=== PATIENT | female | born 1980 | race Caucasian/White ===

== ENCOUNTER 2020-04-19 14:44 | Outpatient (CLI) | payer OTHER, SELFPAY ==
--- NOTE | ~2020-04-19 | MM_ITS ---
EXAMINATION: MM screening quita BI w donaldo HISTORY: Screening TECHNIQUE: Craniocaudal and mediolateral oblique 3-D tomosynthesis images were obtained and synthetic 2-D images were generated. CAD analysis was submitted and interpreted. COMPARISON: 04/27/2017 BREAST PARENCHYMAL COMPOSITION: The breasts are heterogeneously dense, which may obscure small masses . FINDINGS: There is no evidence of suspicious mass, calcification, or architectural distortion to sugg est malignancy in either breast. There has been no suspicious interval change. IMPRESSION: 1. No mammographic evidence of malignancy. 2. Recommend routine screening mammography in one year. BI-RADS Category 1: Negative Reviewed, dictated and finalized at location A. [employer]
== END 2020-04-19 14:45 | disposition home or self-care (01) ==
LOC: ANHIMG 14:48
PROVIDERS: PCP Family Medicine; Visit Provider Family Medicine
DX: Z12.31 Encounter for screening mammogram for malignant neoplasm of breast (principal)
CPT/HCPCS: 77063; 77067

== ENCOUNTER 2021-05-18 18:03 | Emergency (ER) | payer OTHER, SELFPAY ==
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
[2021-05-18 18:10] VITALS: BP 119/74; PULSE 63; RESP 16; TEMP 36.4; O2SAT 100
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
[2021-05-18 18:14] VITALS: BP 119/74; PULSE 63; RESP 16; TEMP 36.4; O2SAT 100
== END 2021-05-18 19:10 | disposition home or self-care (01) ==
PROVIDERS: Emergency Provider Nurse Practitioner; PCP Family Medicine
DX: R07.89 Other chest pain (principal); S29.012A Strain of muscle and tendon of back wall of thorax, initial encounter; V49.60XA Unspecified car occupant injured in collision with unspecified motor vehicles in traffic accident, initial encounter; M79.18 Myalgia, other site; I10 Essential (primary) hypertension; E03.9 Hypothyroidism, unspecified; Z98.84 Bariatric surgery status
CPT/HCPCS: 71111; 72072; 99214; G0463

== ENCOUNTER 2021-05-25 15:31 | Emergency (ER) | payer OTHER, SELFPAY ==
[2021-05-25 15:45] VITALS: BP 121/76; PULSE 78; RESP 16; TEMP 36.8; O2SAT 100
--- NOTE | 2021-05-25 16:28 | ED.GENADULT ---
HPI - General Adult General Chief complaint: Upper Respiratory Infection Stated complaint: covid +,swollen throat Source: patient Mode of arrival: ambulatory Limitations: no limitations History of Present Illness HPI narrative: Patient presents for evaluation of sore throat. She states four days ago she experienced a scratchy throat . She took a home COVID test at that time which was positive. She took a repeat test the following day and another two days after initial. All tests were positive. She had a mild cough but that has improved. She has experienced fatigue and low back pain. She came in today to be checked for strep throat. She has tried several therapies including pectin drops and cepacol without considerable improvement in her symptoms. No one else at home has similar symptoms. She has had COVID another time in the past. No additional complaints or concerns. Related Data Home Medications Medication Instructions Recorded Confirmed levothyroxine 50 mcg PO DAILY 05/18/21 05/25/21 Allergies Allergy/AdvReac Type Severity Reaction Status Date / Time Sulfa (Sulfonamide Allergy Unknown Swelling Verified 05/25/21 15:47 Antibiotics) Review of Systems Review of Systems: CONSTITUTIONAL: Reports fatigue. Denies fever, chills, or sweats. EYES: Denies visual changes, redness, or discharge. ENT: Reports sore throat. Denies rhinorrhea, congestion, or otalgia. CARDIOVASCULAR: Denies chest pain, palpitations, or edema. RESPIRATORY: Reports cough. Denies dyspnea. GASTROINTESTINAL: Denies abdominal pain, nausea, vomiting, or diarrhea. GENITOURINARY: Denies dysuria or hematuria. SKIN: Denies rash or itching. MUSCULOSKELETAL: Reports generalized body aches, improving. NEUROLOGIC:Denies headache, numbness, dizziness, or weakness. PSYCHIATRIC: Denies anxiety or depression. [facility] Past Medical History Medical History (Updated 05/25/21 @ 16:51 by Christiano Lee, MATA, PAWEL) HTN (hypertension) Hypothyroid Surgical History Surgical History H/O gastric sleeve History of delivery History of cholecystectomy History of tonsillectomy and adenoidectomy Hx of cholecystectomy Family History Family History Mother Family history non-contributory Social History Social History Alcohol intake: current Living arrangements: with family Gender identity (if verbalized by the patient): Female Sexual Orientation (if Verbalized by the Patient): Straight or Heterosexual Spiritual care concerns: No Exam Narrative: GENERAL: Well-appearing, well-nourished, and in no acute distress. HEAD: Normocephalic, atraumatic. EYES: PERRLA and EOMI. ENT: Nares clear, no rhinorrhea or epistaxis. Mucous membranes moist. Tonsils are absent. Uvula midline. No posterior pharyngeal swelling. No trismus. Bilateral TMs pearly west nonbulging NECK: Supple. No adenopathy or masses. No carotid bruits or JVD CHEST: No stridor. Clear to auscultation. No respiratory distress. No wheezes rales or rhonchi HEART: Regular rate and rhythm. No murmur heard. Normal peripheral pulses. ABDOMEN: Soft, nontender, nondistended, normal active bowel sounds. EXTREMITIES: Normal range of motion. No edema. SKIN: Warm, dry, no rash. NEURO: No focal deficits. Alert and oriented x3. PSYCH: Normal mood and affect. Course Course Emergency Course: This is a 40-year-old female who presented with complaints of sore throat with recent diagnosis of Covid. Strep was negative. Given Decadron orally while here. She had considerable improvement thereafter. Liquid ibuprofen may help. She has no trismus or stridor on exam. She should follow up outpatient for further evaluation and treatment and go to ER for any difficulty breathing or swallowing. Patient agreed with plan of care.
== END 2021-05-25 17:08 | disposition home or self-care (01) ==
PROVIDERS: Emergency Provider Nurse Practitioner; PCP Family Medicine
DX: U07.1 COVID-19 (principal); I10 Essential (primary) hypertension; E03.9 Hypothyroidism, unspecified; Z98.84 Bariatric surgery status
CPT/HCPCS: 87081; 87880; 99213; G0463; J1100

== ENCOUNTER 2021-08-08 13:08 | Outpatient (CLI) | payer OTHER, SELFPAY ==
--- NOTE | ~2021-08-08 | US_ITS ---
EXAMINATION: US arterial duplex LE DATE: 08/08/2021 14:47 INDICATION: Bilateral lower limb pain and numbness TECHNIQUE: Multiple grayscale and Doppler ultrasound images of the arteries of the bilateral lower li mbs were obtained. COMPARISON: None FINDINGS: Arteries of the right lower limb: Normal triphasic arterial waveforms with brisk systolic upstrokes on spectral Doppler at the right co mmon femoral, profunda femoral and superficial femoral, popliteal, posterior tibial and peroneal brent dev. Biphasic arterial waveforms with brisk systolic upstrokes at the right anterior tibial artery. No evident hemodynamically significant stenosis on grayscale imaging or abnormal increase in peak sys tolic velocities to suggest hemodynamically significant stenosis in the arteries of the right lower l imb. Arteries of the left lower limb: Normal triphasic arterial waveforms with brisk systolic upstrokes on spectral Doppler at the right co mmon femoral, profunda femoral and superficial femoral, popliteal, posterior tibial, peroneal and ant erior tibial arteries. No evident hemodynamically significant stenosis on grayscale imaging or abnorm al increase in peak systolic velocities to suggest hemodynamically significant stenosis in the arteri es of the left lower limb. IMPRESSION: 1. No evident hemodynamically significant stenosis in either lower limb with biphasic waveforms at th e right anterior tibial artery and triphasic waveforms in the remaining arteries of both lower limbs, all with brisk systolic upstrokes. Reviewed, dictated and finalized at location A. IMPRESSION: 1. No evident hemodynamically significant stenosis in either lower limb with bi phasic waveforms at the right anterior tibial artery and triphasic waveforms in the remaining arteries of both lower limbs, all with brisk systolic upstrokes.
--- NOTE | ~2021-08-08 | US_ITS ---
EXAMINATION: US venous doppler [facility] DATE: 08/08/2021 14:43 INDICATION: Bilateral lower limb pain TECHNIQUE: Grayscale ultrasound images without and with compression and Doppler ultrasound images of the bilateral lower extremity veins were obtained. COMPARISON: None. FINDINGS: The visualized portions of right common femoral vein, profunda (deep) femoral vein, femoral vein, pop liteal vein, posterior tibial veins, peroneal veins, gastrocnemius vein and greater saphenous vein ou tflow are patent. The visualized portions of left common femoral vein, profunda femoral vein, femoral vein, popliteal v ein, posterior tibial veins, peroneal veins, gastrocnemius vein and greater saphenous vein outflow ar e patent. IMPRESSION: 1. No deep venous thrombosis in either lower limb. Reviewed, dictated and finalized at location B.
== END 2021-08-08 13:09 | disposition home or self-care (01) ==
PROVIDERS: PCP Physician Assistant; Visit Provider Physician Assistant
DX: M79.605 Pain in left leg (principal)
CPT/HCPCS: 93925; 93970

== ENCOUNTER 2022-08-08 11:38 | Outpatient (CLI) | payer OTHER, SELFPAY ==
--- NOTE | ~2022-08-08 | MM_ITS ---
EXAMINATION: MM screening quita BI w donaldo HISTORY: Screening mammogram TECHNIQUE: Craniocaudal and mediolateral oblique 3-D tomosynthesis images were obtained and synthetic 2-D images were generated. CAD analysis was submitted and interpreted. COMPARISON: 04/19/2020 and 04/27/2017 BREAST PARENCHYMAL COMPOSITION:There are scattered areas of fibroglandular density. FINDINGS: No suspicious mass, calcification, or architectural distortion are identified in either jered ast to suggest malignancy. There has been no suspicious interval change. IMPRESSION: No mammographic evidence of malignancy. Recommend routine screening mammography in one year. BI-RADS Category 1: Negative Reviewed, dictated and finalized at location .
== END 2022-08-08 11:39 | disposition home or self-care (01) ==
LOC: ANHIMG 11:39
PROVIDERS: PCP Physician Assistant; Visit Provider Physician Assistant
DX: Z12.31 Encounter for screening mammogram for malignant neoplasm of breast (principal)
CPT/HCPCS: 77063; 77067

== ENCOUNTER 2022-10-17 05:21 | Emergency (ER) | payer OTHER, SELFPAY ==
[2022-10-17] VITALS (23 sets, daily range): BP systolic 102–113; BP diastolic 49–73; PULSE 52–66; RESP 8–18; TEMP 36.6; O2SAT 95–100
--- NOTE | ~2022-10-17 | CT_ITS ---
EXAMINATION: CT abdomen pelvis w con INDICATION: Left upper quadrant and epigastric abdominal pain TECHNIQUE: Computed tomographic images of the abdomen and pelvis were obtained after the administrati on of 100 cc of Omnipaque 350 intravenous contrast. The dose-length product (DLP) was 324.22 mGy-cm. Automated exposure control and iterative reconstruction technique were employed. COMPARISON: 06/23/2017 FINDINGS: The lung bases are clear. The heart size is normal. There is a small sliding hiatal hernia. There are surgical changes in the stomach, likely reflecting gastric sleeve surgery. The gallbladder is surgically absent. The liver, spleen, pancreas, and adrenal glands are normal. No pathologically enlarged abdominal or pelvic lymph nodes are identified. No free intraperitoneal gas or evidence of b owel obstruction. The appendix is normal. IMPRESSION: 1. Small sliding hiatal hernia. Reviewed, dictated and finalized at location A.
--- NOTE | ~2022-10-17 | XR_ITS ---
EXAMINATION: XR chest 2V DATE: 10/17/2022 06:03 INDICATION: Chest pain TECHNIQUE: PA and lateral views of the chest are obtained. COMPARISON: 04/06/2017 FINDINGS: The lungs are free of acute opacities. No pleural effusion or pneumothorax. The cardiomedia stinal silhouette is normal. There is mild thoracic spondylosis. Surgical clips in the right upper qu adrant are likely from prior cholecystectomy. IMPRESSION: 1. No acute cardiopulmonary abnormality. Reviewed, dictated and finalized at location A.
--- NOTE | 2022-10-17 05:35 | ECG_ITS ---
Measurements Intervals [place] Rate: 64 P: 29 [place]: 158 QRS: 82 QRSD: 88 T: 55 QT: 405 QTc: 420 Interpretive Statements SINUS RHYTHM INCOMPLETE RIGHT BUNDLE BRANCH BLOCK BORDERLINE ECG NO PREVIOUS ECG AVAILABLE FOR COMPARISON Electronically Signed On 10-17-2022 8:00:08 CDT by Zelalem Lozano D.O.
[2022-10-17 05:46] LABS: Basophils Percent Auto 0.4 % (0.2-1.2); Eosinophils Absolute Auto 0.1 K/mm3 (0-0.3); Eosinophils Percent Auto 1.2 % (0-4.4); Hematocrit 40.6 % (37.0-47.0); Hemoglobin 13.6 g/dL (12.0-15.0); Immature Granulocyte Absolute 0.03 K/mm3 (0.00-0.031); Immature Granulocyte Percent A 0.4 % (0-0.5); Lymphocytes Percent Auto 18.1 % (18.3-44.2); Mean Corpuscular HGB Conc 33.5 g/dl (32-36); Mean Corpuscular Hemoglobin 28.9 pg (26-34); Mean Corpuscular Volume 86.4 fl (80-100); Mean Platelet Volume 9.3 fl (7.4-10.4); Monocytes Absolute Auto 0.8 K/mm3 (0.1-0.6); Monocytes Percent Auto 10.9 % (2.6-8.5); Neutrophils Absolute Auto 5.3 K/mm3 (1.3-6.7); Platelet Count Result 186 k/mm3 (150-375); Red Cell Distribution Width 11.7 % (11.5-14.5); White Blood Count 7.7 K/mm3 (4.5-10.0)
[2022-10-17 05:59] LABS: Alanine Aminotransferase 25 U/L (6-35); Alkaline Phosphatase 41 U/L (38-126); Anion Gap 6 mmol/L (8-16); Aspartate Amino Transferase 37 U/L (14-36); Bilirubin,Total 0.5 mg/dL (0.2-1.3); Blood Urea Nitrogen 11 mg/dL (7-17); Calcium 8.9 mg/dL (8.4-10.2); Carbon Dioxide 28 mmol/L (22-30); Chloride 103 mmol/L (98-107); Estimated CRCL calculation 72 ml/min; Estimated Glomerular Filt Rate > 60; Glucose 90 mg/dL (65-110); Lipase 68 U/L (23-300); Potassium 3.6 mmol/L (3.4-5.0); Sodium 137 mmol/L (137-145)
[2022-10-17 06:02] LABS: INR 1.1; Prothrombin Time 14.5 Seconds (11.1-14.7)
[2022-10-17 06:03] LABS: Partial Thromboplastin Time 35.5 SECONDS (22.3-36.8)
[2022-10-17 06:23] LABS: Troponin I < 0.012 ng/mL (0.000-0.034)
--- NOTE | 2022-10-17 08:40 | ED.GENADULT ---
HPI - General Adult General Chief complaint: Chest Pain Stated complaint: CHEST AND ABD PAIN Time Seen by Provider: 10/17/22 07:02 History of Present Illness HPI narrative: Patient is a 41-year-old female who presents ER with epigastric pain. Sudden onset earlier this morning. Radiates to the left side. Associate with nausea vomiting. She reports she was shaky and sweating and that her hands were tingly. She became short of breath. No aggravating or alleviating factors. Patient reports she has been having diarrhea for several days. No exertional component. No alleviating factors. Related Data Home Medications Medication Instructions Recorded Confirmed levothyroxine 50 mcg tablet 50 mcg PO DAILY 05/18/21 05/25/21 Allergies Allergy/AdvReac Type Severity Reaction Status Date / Time Sulfa (Sulfonamide Allergy Unknown Swelling Verified 05/25/21 15:47 Antibiotics) Review of Systems Review of Systems: All systems reviewed & are unremarkable except as noted in HPI and below Constitutional: Constitutional: Denies chills, Reports fatigue and Denies fever(s) ENT: Denies nasal congestion and Denies sore throat Cardiovascular: Cardiovascular: Reports chest pain, Denies rapid heart rate and Denies radiating jaw, neck or arm pain Respiratory: Respiratory: Denies cough, Reports dyspnea and Denies wheezing Gastrointestinal: Gastrointestinal: Reports abdominal pain, Reports diarrhea, Denies nausea and Denies vomiting Genitourinary: Genitourinary: Reports no additional female genitourinary complaints Musculoskeletal: Musculoskeletal: Reports no additional musculoskeletal complaints [facility] Past Medical History Medical History (Updated 10/17/22 @ 10:37 by Rajiv Liriano MD) HTN (hypertension) Hypothyroid Surgical History Surgical History H/O gastric sleeve History of delivery History of cholecystectomy History of tonsillectomy and adenoidectomy Hx of cholecystectomy Family History Family History Mother Family history non-contributory Social History Social History Alcohol intake: current Living arrangements: with family Gender identity (if verbalized by the patient): Female Sexual Orientation (if Verbalized by the Patient): Straight or Heterosexual Spiritual care concerns: No Exam Narrative: GENERAL: Well-appearing, well-nourished, and in no acute distress. HEAD: Normocephalic, atraumatic. ENT: Mucous membranes moist. CHEST: Clear to auscultation. No respiratory distress. HEART: Regular rate and rhythm. Normal peripheral pulses. ABDOMEN: Soft, nontender, nondistended. EXTREMITIES: Normal range of motion. No edema. SKIN: Warm, dry, no rash. NEURO: Alert and oriented x3. PSYCH: Normal mood and affect. Course Vital Signs Vital signs: Vital Signs Temperature 98 F 10/17/22 05:21 Pulse Rate 64 10/17/22 05:21 Respiratory Rate 17 10/17/22 05:21 Blood Pressure 113/60 10/17/22 05:21 Pulse Oximetry 100 10/17/22 05:21 Oxygen Delivery Room Air 10/17/22 05:21 Temperature 98 F 10/17/22 05:21 Pulse Rate 63 10/17/22 10:16 Respiratory Rate 12 10/17/22 10:16 Blood Pressure 107/65 10/17/22 10:16 Pulse Oximetry 99 10/17/22 10:16 Oxygen Delivery Room Air 10/17/22 05:21 Medical Decision Making MDM Narrative Medical decision making narrative: -Presentation: 41-year-old female presenting ER with epigastric pain -DDX includes but is not limited to: Pancreatitis, gastritis, gastroenteritis, ACS -Co-morbidities complicating care: None -Social determinants of health: Lives at home -External Chart Review: None -Hx from independent Sources: Patient -Independent interpretation of studies: Normal CBC/CMP. Troponin negative x2. -Discussion of [place]
[2022-10-17 09:51] LABS: Troponin I < 0.012 ng/mL (0.000-0.034)
== END 2022-10-17 10:53 | disposition home or self-care (01) ==
PROVIDERS: Emergency Medicine; Emergency Provider Emergency Medicine; PCP Physician Assistant
DX: K44.9 Diaphragmatic hernia without obstruction or gangrene (principal); I10 Essential (primary) hypertension; E03.9 Hypothyroidism, unspecified; Z90.49 Acquired absence of other specified parts of digestive tract; Z98.84 Bariatric surgery status; I45.10 Unspecified right bundle-branch block
CPT/HCPCS: 36415; 71046; 74177; 80053; 83690; 84484; 85025; 85610; 85730; 93005; 99284; Q9967

== ENCOUNTER 2023-09-20 15:11 | Outpatient (CLI) | payer OTHER, SELFPAY ==
--- NOTE | ~2023-09-20 | US_ITS ---
Pelvic ultrasound. Clinical History: Vaginal lesion Technique: Realtime transabdominal and transvaginal scanning of the pelvis was performed. Color flow Doppler and Doppler spectral analysis were performed. Findings: Status post hysterectomy. There is a 7 x 5 x 4 mm cystic lesion at the vaginal cuff.. The right ovary measures 1.3 x 1.0 x 1.7 cm cm. No significant right ovarian or adnexal mass is seen . The left ovary is not visualized. No significant left ovarian or adnexal mass is seen. There is no evidence of free fluid in the cul de sac. Impression: 7 x 5 x 4 mm cystic lesion at the vaginal cuff. Status post hysterectomy. Reviewed, dictated and finalized at location . Impression: 7 x 5 x 4 mm cystic lesion at the vaginal cuff. Status post hysterectomy.
== END 2023-09-20 15:12 | disposition home or self-care (01) ==
LOC: ANHIMG 15:12
PROVIDERS: PCP Physician Assistant
DX: N94.89 Other specified conditions associated with female genital organs and menstrual cycle (principal)
CPT/HCPCS: 76830; 76856

== ENCOUNTER 2023-11-03 15:33 | Outpatient (CLI) | payer OTHER, SELFPAY ==
--- NOTE | ~2023-11-03 | MM_ITS ---
EXAMINATION: MM screening quita BI w donaldo HISTORY: Screening mammogram TECHNIQUE: Craniocaudal and mediolateral oblique 3-D tomosynthesis images were obtained and synthetic 2-D images were generated. CAD analysis was submitted and interpreted. COMPARISON: 08/08/2022, 04/19/2020, 04/27/2017 BREAST PARENCHYMAL COMPOSITION:Dense: The breasts are heterogeneously dense, which may obscure small masses. FINDINGS: No suspicious mass, calcification, or architectural distortion are identified in either jered ast to suggest malignancy. There has been no suspicious interval change. IMPRESSION: No mammographic evidence of malignancy. Recommend routine screening mammography in one year. BI-RADS Category 1: Negative Reviewed, dictated and finalized at location .
== END 2023-11-03 15:34 | disposition home or self-care (01) ==
LOC: ANHIMG 15:40
PROVIDERS: PCP Nurse Practitioner Family; Visit Provider Nurse Practitioner Family
DX: Z12.31 Encounter for screening mammogram for malignant neoplasm of breast (principal)
CPT/HCPCS: 77063; 77067

== ENCOUNTER 2023-12-03 00:34 | Day surgery (SDC) | payer OTHER, SELFPAY ==
--- NOTE | 2023-11-25 16:07 | PC.NURSE ---
Report to the Outpatient Waiting Room, entrance under the green pavilion located off [facility], at time ___1000____ on date _[id number] . Planned Procedure Time: ___1200 .? Time changes happen often and if your time is changed the preop area will call you the afternoon before. - You and your visitor will be asked to self-screen and do not enter if you have any COVID symptoms. Please call surgeon if you need to reschedule. - A mask is optional within the hospital at this time. Patients may have clear liquids (water, carbonated beverages, clear teas, apple juice) until 3 hours prior to surgery with a maximum of 20 ounces. STOP AT 9AM - No food from midnight until time of surgery and no smoking - Take only the following medications with a SIP of water on the morning of surgery: ____SYNTHROID DO NOT STOP ANY OF YOUR OTHER PRESCRIPTION MEDICATIONS PRIOR TO SURGERY EXCEPT THE FOLLOWING Medications to discontinue per physician STOP YOUR MVT X3 DAYS BEFORE SURGERY Date to take last ptyl___[id number] DO NOT TAKE YOUR LISINOPRIL THE MORNING OF SURGERY. DO NOT TAKE YOUR PRN HCTZ THE MORNING OF SURGERY. Please no make-up, nail danish, hairspray, perfume, deodorant, or body powder the day of surgery.? No jewelry (including any body piercings) or valuables the day of surgery, leave them at home.? Please take a shower or bath the night before, or the morning of, surgery with an antibacterial soap.? Wear comfortable, loose fitting clothing.? - Jewelry must be removed prior to entering the operating room.? Rings and piercings that are not removed may be cut off. - The hospital will not accept responsibility for valuables.? - Please leave all valuables, including medications, at home the day of surgery. If you are going home after surgery, a licensed local combination truck driver must drive you home.? - NO public transportation without another adult if you receive anesthesia. - We recommend that an adult stay with you for 24 hours following discharge. - We also recommend that you do not drive, make important decision, drink alcoholic beverages, or take any drugs that were not prescribed by your health care provider for at least 24 hours after your discharge time. Follow any additional instructions given to you from your surgeon. Telephone instructions given to ____BRIDGET (PATIENT) and asked if any additional questions and then verbalized understanding. Patient advised to call surgeon office or pre surgery nurse liaison [phone] if any additional questions.
[2023-11-25 16:16] VITALS: BMI 20.8
[2023-12-03] VITALS (8 sets, daily range): BP systolic 102–122; BP diastolic 62–83; PULSE 48–66; RESP 16; TEMP 36.5; O2SAT 100; BMI 19.9
--- NOTE | 2023-12-03 07:45 | PM.IMHP ---
H&P: HPI History of Present Illness Date/Time: 12/03/23 07:45 Chief Complaint: vaginal cyst Narrative: 42-year-old female who presents for excision of vaginal cyst. She reports vaginal discomfort due to cyst. The patient had pelvic imaging which showed a vaginal cuff cyst. Patient requests excision in the operating room. Review of Systems Cardiovascular: Cardiovascular: Denies chest pain, Denies leg edema, Denies palpitations, Denies dyspnea and Denies dyspnea on exertion Respiratory: Respiratory: Denies cough, Denies dyspnea and Denies dyspnea on exertion Gastrointestinal: Gastrointestinal: Denies abdominal pain, Denies constipation, Denies diarrhea, Denies nausea and Denies vomiting Genitourinary: Genitourinary: Denies hematuria, Denies urinary frequency, Denies dysuria, Denies pelvic pain, Denies urinary incontinence and Denies vaginal discharge Neurologic: Reports system reviewed and no additional complaints, except as documented Psychiatric: Psychiatric: Reports no additional psychiatric complaints Endocrine: Endocrine: Denies palpitations PMFSH Past Medical History Medical History (Updated 11/01/23 @ 07:29 by Frank Pulido MD) Hernia HTN (hypertension) Hypothyroid Vaginal discharge Surgical History Surgical History (Updated 10/25/23 @ 10:12 by AFSHIN Bernardo) H/O gastric sleeve H/O: hysterectomy History of delivery x 4 History of cholecystectomy History of tonsillectomy and adenoidectomy Hx of cholecystectomy Family History Family History (Updated 10/25/23 @ 10:14 by AFSHIN Bernardo) Mother Family history non-contributory Cervical cancer Mother No problems noted. Father Acute myocardial infarction Grandparent Acute myocardial infarction maternal and paternal granfather Breast cancer maternal grandmother and great grandmother Social History Social History (Updated 10/25/23 @ 10:15 by AFSHIN Bernardo) Smoking status: Never smoker Second hand tobacco smoke exposure: No Alcohol intake: current Drinks per week: 0 Alcohol use details: rare/social Substance use: never Substance use type: does not use Other substance usage details: gummies occassional Do You Feel Safe in your Home?: Yes Lack of Transportation: No Lack of Food: Never True Current Housing: I Have Housing Concerned About Future Housing: No Difficulty Paying Gas/Electric Bills: No Difficulty Paying for Meds: No Currently Unemployed: No Difficulty w/ Childcare or Family Care: No Living arrangements: with family Additional living arrangements comments: single Occupation/Education: occupation 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 Gender identity (if verbalized by the patient): Female Sexual Orientation (if Verbalized by the Patient): Bisexual Spiritual care concerns: No Meds Home Medications and Allergies Home Medications Medication Instructions Recorded Confirmed Type levothyroxine 50 mcg tablet 50 mcg PO DAILY 05/18/21 11/25/23 History lisinopril 20 mg tablet 20 mg PO DAILY 10/25/23 11/25/23 History wcqjgaheokib-Xg-bbbr-minerals 18 1 tablet PO DAILY 11/25/23 11/25/23 History mg-0.4 mg tablet Allergies Allergy/AdvReac Type Severity Reaction Status Date / Time Sulfa (Sulfonamide Allergy Unknown Swelling Verified 11/25/23 16:20 Antibiotics) Latex, Natural Rubber Allergy Rash Verified 11/25/23 16:23 Exam Const: General: no acute distress Eyes: EOM: EOMs intact bilaterally Neck: Neck: supple Thyroid: thyroid normal Chest: Breast/axilla inspection: normal inspection of the breasts Breast/axilla palpation: normal palpation of the breasts, normal palpation of the axillae and no axillary lymphadenopathy Resp: Effort & Inspection: normal respiratory effort Auscultation: clear to auscultation bilaterally Cardio: Rate: regular rate Rhythm: regular rhythm GI: Inspectio
[2023-12-03] MEDS: LACTATED RINGERS 1,000 ML 30 ML IV CONT (10:30)
--- NOTE | 2023-12-03 11:23 | WPDANESEPPF ---
Anes - Initial Pre Proc Eval Procedure: Operation Date: 12/03/23 12:00 Proposed Procedures p Excision of Vaginal Cyst - Frank Pulido MD Date/Time: 12/03/23 11:23 Surgeon: Frank Pulido MD Pre Op Diagnosis: Vaginal Cyst Patient Data Age: 42 Gender: F Height: 1.65 m Weight: 54.4 kg Last Vital Signs Temp 97.7 F 12/03/23 10:30 Pulse 62 12/03/23 10:30 Resp 16 12/03/23 10:30 BP 118/74 12/03/23 10:30 Pulse Ox 100 12/03/23 10:30 O2 Del Method Room Air 12/03/23 10:30 Allergies Allergy/AdvReac Type Severity Reaction Status Date / Time Sulfa (Sulfonamide Allergy Unknown Swelling Verified 12/03/23 11:23 Antibiotics) Latex, Natural Rubber Allergy Rash Verified 12/03/23 11:23 Home Medications Medication Instructions Recorded Confirmed Type levothyroxine 50 mcg tablet 50 mcg PO DAILY 05/18/21 11/25/23 History lisinopril 20 mg tablet 20 mg PO DAILY 10/25/23 11/25/23 History cjnltbqignvm-Tw-ylmk-minerals 18 1 tablet PO DAILY 11/25/23 11/25/23 History mg-0.4 mg tablet Patient hx anesthesia problems: none Family hx anesthesia problems: none Results Review: All pre-operative results and documents have been reviewed as part of the pre-operative evaluation. [facility] Past Medical History Medical History (Updated 11/01/23 @ 07:29 by Frank Pulido MD) Hernia HTN (hypertension) Hypothyroid Vaginal discharge Surgical History Surgical History (Updated 10/25/23 @ 10:12 by AFSHIN Bernardo) H/O gastric sleeve H/O: hysterectomy History of delivery x 4 History of cholecystectomy History of tonsillectomy and adenoidectomy Hx of cholecystectomy Family History Family History (Updated 10/25/23 @ 10:14 by AFSHIN Bernardo) Mother Family history non-contributory Cervical cancer Mother No problems noted. Father Acute myocardial infarction Grandparent Acute myocardial infarction maternal and paternal granfather Breast cancer maternal grandmother and great grandmother Social History Social History (Updated 10/25/23 @ 10:15 by AFSHIN Bernardo) Smoking status: Never smoker Second hand tobacco smoke exposure: No Alcohol intake: current Drinks per week: 0 Alcohol use details: rare/social Substance use: never Substance use type: does not use Other substance usage details: gummies occassional Do You Feel Safe in your Home?: Yes Lack of Transportation: No Lack of Food: Never True Current Housing: I Have Housing Concerned About Future Housing: No Difficulty Paying Gas/Electric Bills: No Difficulty Paying for Meds: No Currently Unemployed: No Difficulty w/ Childcare or Family Care: No Living arrangements: with family Additional living arrangements comments: single Occupation/Education: occupation 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 Gender identity (if verbalized by the patient): Female Sexual Orientation (if Verbalized by the Patient): Bisexual Spiritual care concerns: No Anes - Eval Final PreProcedure Day of Procedure 12/03/23 11:23 Patient weight: normal Heart: regular rate and rhythm Lungs: clear to auscultation Airway: Mallampati scale class II Neurological: alert and oriented Last oral intake: >/= 8 hours ASA classification: II Emergent: no Anesthetic plan: proceed Anesthesia type and monitoring: general GIVS and standard monitoring Results Review: All pre-operative results and documents have been reviewed as part of the pre-operative evaluation. Informed Consent: The patient's anesthetic plan and its attendant risks and benefits were discussed with the patient/family/POA. Questions were solicited and answers provided to the satisfaction of the patient/family/POA.
--- NOTE | 2023-12-03 11:33 | WPDHPUPDATE1 ---
History and Physical Update Update Date/Time: 12/03/23 11:33 History and Physical has been reviewed, including an updated exam of the patient. There are NO changes in the patient's condition. Risks, benefits, and alternatives have been discussed and questions answered. Patient agrees to proceed with procedure.
[2023-12-03] MEDS: ceFAZolin 2 GM/D5W 50 ML 2 GM/50 ML BAG IVPB (11:49)
[2023-12-03] MEDS: LIDO 1%/EPINEPHRINE 1:100,000 50 ML VIAL 10 ML INFILTRATE (12:02)
[2023-12-03] MEDS: FERRIC SUBSULFATE 8 ML SOLUTION WITH APPLICATOR TOPICAL (12:12)
--- NOTE | 2023-12-03 12:16 | W.PM.PROC2 ---
Procedure Note - Detailed Date of Procedure 12/03/23 Pre-op Diagnosis Vaginal Cyst Post-op Diagnosis Same Procedure Performed excision of vaginal wall cyst Surgeon Frank Pulido MD Anesthesia General Indications vaginal cyst Findings approximately 1 cm cyst noted at the right apex of the vaginal cuff Description of Procedure The patient was taken to the OR and general anesthesia induced. She was prepped and draped in candy cane stirrups with support of the back and bilateral lower extremities. The above findings were noted. The area surrounding the abscess was infiltrated with 1% lidocaine with epinephrine. The skin overlying the abscess was incised with a 15 blade scalpel. The cyst was ruptured in attempting to dissect if from the vaginal wall. Clear serous fluid was expressed. The cyst wall was then sent for pathology. The base of the cyst was suture ligated with 2-0 vicryl. The surgical bed was examined. Hemostasis was obtained with Bovie cautery and Monsel's solution. The patient tolerated the procedure well. Sponge, lap, and needle counts were correct. The patient had SCD's on throughout the case for VTE prophylaxis. Estimated Blood Loss 5 Drains No Packing No Pathology Yes (vaginal cyst wall) Complications No immediate complications Condition Stable Disposition PACU [facility] Billing Surgery - Charge Forward: Surgery Billing
[2023-12-03] MEDS: fentaNYL CITRATE INJ (*CRX) 100 MCG/2 ML VIAL 25 MCG IV PUSH ×2 (12:31→12:56)
[2023-12-03] MEDS: KETOROLAC 30 MG/ML VIAL (*BKC) IV PUSH (13:37)
--- NOTE | 2023-12-03 13:40 | ECG_ITS ---
Test Date: 2023-12-03 13:52:41 Measurements Intervals [place] Rate: 50 P: 32 MT: 149 QRS: 91 QRSD: 86 T: 70 QT: 442 QTc: 407 Interpretive Statements SINUS BRADYCARDIA OTHERWISE WITHIN NORMAL LIMITS No previous ECG available for comparison Electronically Signed On 12-04-2023 09:39:15 CDT by Cory Montes M.D.
[2023-12-03] MEDS: FAMOTIDINE 20 MG/2 ML VIAL IV PUSH (14:11)
[2023-12-03 14:44] LABS: Troponin I < 0.012 ng/mL (0.000-0.034)
--- NOTE | 2023-12-03 15:13 | SUR.PHASEII ---
Dr. Anne aware of normal troponin. He said okay to send patient home.
== END 2023-12-03 15:20 | disposition home or self-care (01) ==
PROVIDERS: Anesthesiology; PCP Nurse Practitioner Family; Visit Provider Student in an Organized Health Care Education/Training Program
PROC: (CPT 57135; principal; 2023-12-03 12:00)
DX: N84.2 Polyp of vagina (principal)
CPT/HCPCS: 57135; 36415; 84484; 88305; 93005; J0690; J1885; J2003; J2004; J2250; J2405; J2704; J3010; J7120

== ENCOUNTER 2024-11-11 21:46 | Emergency (ER) | payer OTHER, SELFPAY ==
--- NOTE | ~2024-11-11 | XR_ITS ---
Examination: XR hand RT min 3V Clinical History: crush injury Comparison: None Technique: 3 views right hand Findings/impression: 1. Slight lateral subluxation of third finger at MCP joint. 2. No fracture third finger or fracture of right hand. Reviewed, dictated and finalized at location R.
[2024-11-11 22:06] VITALS: BP 126/79; PULSE 60; RESP 18; O2SAT 100
--- NOTE | 2024-11-11 22:08 | PC.NURSE ---
Pt presents to ED after slamming middle finger with car door, per pt finger feels numb and was bleeding alot. Pt finger has stopped bleeding at this time, denies taking anything for pain.
--- NOTE | 2024-11-11 22:13 | ED.GENADULT ---
HPI - General Adult General Chief complaint: Extremity Injury, Upper Stated complaint: R middle finger injury Time Seen by Provider: 11/11/24 22:11 History of Present Illness HPI narrative: Patient is a 43-year-old female who presents emergency department this evening complaining of a right middle finger injury. Patient states that she smashed her finger against her car door. Sustained an abrasion to the palmar aspect of the pad of her distal ring finger otherwise no additional injuries. Patient is able to bend her middle. Denies any additional injuries or concerns. Related Data Home Medications ?Medication ?Instructions ?Recorded ?Confirmed ?Last Taken ?Type levothyroxine 50 mcg tablet 50 mcg PO DAILY 05/18/21 01/10/24 12/02/23 History lisinopril 20 mg tablet 20 mg PO DAILY 10/25/23 01/10/24 12/02/23 History sstczsqqzyuz-Oi-rxwc-minerals 18 1 tablet PO DAILY 11/25/23 01/10/24 11/30/23 History mg-0.4 mg tablet Allergies Allergy/AdvReac Type Severity Reaction Status Date / Time Sulfa (Sulfonamide Allergy Unknown Swelling Verified 01/10/24 10:37 Antibiotics) Latex, Natural Rubber Allergy Rash Verified 01/10/24 10:37 Review of Systems Review of Systems: All systems are reviewed and are negative unless stated otherwise in the HPI. [facility] Past Medical History Medical History Vaginal discharge Hernia Hypothyroid HTN (hypertension) Surgical History Surgical History History of hysteroscopy H/O: hysterectomy vaginal cystectomy History of delivery x 4 History of tonsillectomy and adenoidectomy Hx of cholecystectomy H/O gastric sleeve Family History Family History Mother Family history non-contributory Cervical cancer Mother No problems noted. Father Acute myocardial infarction Grandparent Acute myocardial infarction maternal and paternal granfather Breast cancer maternal grandmother and great grandmother Social History Social History Smoking status: Never smoker Second hand tobacco smoke exposure: No Alcohol intake: current Drinks per week: 0 Alcohol use details: rare/social Substance use: never Substance use type: does not use Other substance usage details: gummies occassional Do You Feel Safe in your Home?: Yes Lack of Transportation: No Lack of Food: Never True Current Housing: I Have Housing Concerned About Future Housing: No Difficulty Paying Gas/Electric Bills: No Difficulty Paying for Meds: No Currently Unemployed: No Difficulty w/ Childcare or Family Care: No Living arrangements: with family Additional living arrangements comments: single Occupation/Education: occupation 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 HEENT: PERRL, no rhinorrhea, no post nasal drip, oropharynx clear. Neck: Trachea midline, no JVD, no lymphadenopathy. Cardiovascular: Regular rate and rhythm, no murmurs, rubs or gallops, no peripheral edema. Respiratory: Clear to auscultation bilaterally, no tachypnea, no wheezing, no rhonchi, no rubs, no respiratory distress. Abdomen: Soft, nontender, nondistended, no rebound, no guarding, no peritoneal signs. Musculoskeletal: No joint swelling or deformity, normal muscle tone, Small linear abrasion to the pad of the right middle finger distally, patient is able to flex her right middle finger at the PIP and the IP joints. Skin: No rashes or petechia, no signs of infection. Psychiatric: Alert and oriented, normal behavior and judgment for situation. Neurological: Alert and oriented to person, place, and time. Follows all commands. No focal deficits, speech is clear and fluent. Course Vital Signs Vital signs: Vital Signs Pulse Rate 60 11/11/24 22:06 Respiratory Rate 18 11/11/24 22:06 Blood Pressure 126/79 11/11/24 22:06 Pulse Oximetry 100 11/11/24 22:06 Oxygen Delivery Room Air 11/11/24 22:06 Pulse Rate 60 11/11/24 23:35 Respiratory Rate 16 11/11/24 23:35 Blood Pressure 117/78 11/11/24 23:35 Pulse Oximetry 100 11/11/24 23:35 Oxygen Delivery Room Air 11/11/24 22:06 Medical Decision Making [facility] Narrative Medical decision making narrative: The patient was evaluated by myself in the emergency department. History is obtained from patient who is an independent historian and physical exam was performed. External medical records were reviewed at this time. Imaging studies obtained included right hand x-ray which was independently interpreted by me revealing no acute process, which is pending final radiology interpretation. Differential diagnosis considerations include fracture, contusion, laceration/abrasion. Comorbidities impacting this visit include none. I have evaluated and discussed social determinants of health with the patient that could potentially impact subsequent diagnosis and treatment plans. On repeat assessment of the patient, reevaluation revealed that the patient is doing well and is in no acute distress. Patient symptoms have improved since she arrived to our emergency department. Repeat vital signs were all reviewed and noted to be stable. Differential diagnosis and treatment plan were discussed with the patient at bedside. Patient agrees with discussion and after shared medical decision making agrees with discharge. All questions were answered to the patient's satisfaction. Patient will follow up with her PCP in 3-5 days. Patient was provided with strict return precautions and instructed to return to the emergency department if any new or worsening symptoms develop. The patient was discharged in stable condition. Vital Signs Vital Signs: Vital Signs Pulse Rate 60 11/11/24 22:06 Respiratory Rate 18 11/11/24 22:06 Blood Pressure 126/79 11/11/24 22:06 Pulse Oximetry 100 11/11/24 22:06 Oxygen Delivery Room Air 11/11/24 22:06 Pulse Rate 60 11/11/24 23:35 Respiratory Rate 16 11/11/24 23:35 Blood Pressure 117/78 11/11/24 23:35 Pulse Oximetry 100 11/11/24 23:35 Oxygen Delivery Room Air 11/11/24 22:06 Discharge Plan Discharge Clinical Impression: Crushing injury of right middle finger Patient Disposition: Home Condition: Improved Instructions: Antibiotic Form, Crush Injury (ED) Additional Instructions: Please follow-up with your family doctor within the next 3-5 days. Return to emergency department if any new or worsening symptoms develop. Patient Language: Georgian Prescriptions: No Action levothyroxine 50 mcg tablet 50 mcg PO DAILY lisinopril 20 mg tablet 20 mg PO DAILY juqoyeitvnph-Il-ikeo-minerals 18-0.4 mg Tablet 1 tablet PO DAILY estradiol 1 mg tablet 1 mg PO DAILY Qty: 90 0RF Follow-up/Referrals: Derek,Nazia Newberry, AIRLINE MANAGERIAL SUPERVISOR [Primary Care Provider, Unknown] - 3 Days Time of Disposition: 23:23
--- OUTSIDE RECORDS SUMMARY | 2024-11-11 22:28 | XMS_ITS | Data Portability ---
Author Organization [facility] picsell, Main Office Address [address] [place] [address] Assessment No assessment recorded. Plan of Treatment Reminders Order Date Submit Date Provider Last Modified By Organization Details Last Modified Time Details Appointments None recorded. Lab [facility] + rf (antinuclea r antibodies + rheumatoid factor), quantitativ e, serum 2024 025 [facility] (Lab), [address] [place], [address], 5 07:04:15 ESR (erythrocyt e sedimentati on rate), blood 2024 025 [facility] (Lab), [address] [place], [address], 5 08:43:46 urinalysis, dipstick 2024 025 [facility] [address], [place], [address], 5 17:45:58 CBC w/ auto diff 2024 025 [facility] (Lab), [address] [place], [address], 5 08:43:46 CMP, serum or plasma 2024 025 [facility] (Lab), [address] [place], [address], 5 08:43:46 ESR (erythrocyt e sedimentati on rate), blood [address] [facility] (Lab), [address] [place], [address], 5 08:43:46 urinalysis, dipstick 2023 024 [facility] [address], [place], [address], 4 17:35:48 pap, IG + CT/NG + reflex HR HPV 2023 024 [facility] (Lab), [address] [place], [address], 4 09:15:37 estrogen, total, serum [address] (Lab), [address] [place], [address], 4 16:26:15 progesteron e, serum [address] (Lab), [address] [place], [address], 4 16:26:15 testosteron e, free + total, serum [address] (Lab), [address] [place], [address], 4 16:26:15 prolactin, serum [address] (Lab), [address] [place], [address], 4 16:26:15 lh (luteinizin g hormone), serum [address] (Lab), [address] [place], [address], 4 16:26:16 glycohemogl obin, total, blood [address] (Lab), [address] [place], [address], 4 16:26:14 CMP, serum or plasma [address] (Lab), [address] [place], [address], 4 16:26:15 vitamin D, 1,25-dihydr oxy, serum [address] (Lab), [address] [place], [address], 4 16:26:14 TSH, serum or plasma [address] (Lab), [address] [place], [address], 4 16:26:15 lipid panel, serum [address] (Lab), [address] [place], [address], 4 16:26:14 CBC w/ auto diff [address] (Lab), [address] [place], [address], 4 16:26:14 Referral general surgeon referral 2022 023 [email or web address] 3 Castro Yañez MD, [address] [place] [address], [place], [address], 3 07:55:33 Procedures None recorded. Surgeries None recorded. Imaging CT, neck, soft tissue, w/wo contrast - Please call patient to schedule. [email or web address] [place] [address] Imaging Center, [address], [place], [address], 5 12:12:53 US, transvagina l - *Please call pt to schedule* [address] Imaging, [address], [place], [address], 4 10:34:07 MAMMO, screening, digital, bilateral - *Please call pt to schedule* [address] [facility], [address], [place], [address], 4 08:56:13 Medication Orders Medrol (Isak) 4 mg tablets in a dose pack 2024 025 [facility] #3259, [address] [place], [address], 5 17:39:55 minocycline 100 mg capsule 2024 025 [facility]/Pharmacy #3259, [address] [place], [address], 5 17:39:54 valacyclovi r 1 gram tablet 2024 025 [facility]/Pharmacy #3259, [address] [place], [address], 5 17:39:55 lisinopril 20 mg tablet 2023 024 [facility]/Pharmacy #3259, [address] [place], [address], 17:15:54 hydrochloro thiazide 12.5 mg capsule 2023 024 [facility]/Pharmacy #3259, [address] [place], [address], 17:16:00 Patient TargetsNo targets recorded. Patient InstructionsNo instructions recorded. Reason for Referral General Surgeon Referral for Hiatal hernia with gastroesophageal reflux Referring Physician: [facility], Encounter Date: 10/26/2022 Results Created Date Observation Date Name Description Value Unit Range Abnormal Flag Note LastModifiedBy Organization Detail LastModifiedTime 09/06/19 24 09/06/2023 urina lysis , dipst ick Leukocytes (reference range: negative manisha/ l) Trace Not Available [address], [place], [address], 09/06/2023 17:15:12 09/06/19 24 09/06/2023 urina lysis , dipst ick Nitrite (reference rage: negative mg/dl) positi ve Not Available [address], [place], [address], 09/06/2023 17:15:12 09/06/19 24 09/06/2023 urina lysis , dipst ick Urobilinogen (reference range: 0.2-1 mg/dl) 1 Not Available [address], [place], [address], 09/06/2023 17:15:12 09/06/19 24 09/06/2023 urina lysis , dipst ick Protein (reference range: negative mg/dl) Trace Not Available [address], [place], [address], 09/06/2023 17:15:12 09/06/19 24 09/06/2023 urina lysis , dipst ick pH (reference range: 5-7) 6.0 Not Available [address], [place], [address], 09/06/2023 17:15:12 09/06/19 24 09/06/2023 urina lysis , dipst ick Blood (reference range: negative Tim/ l) Negati ve Not Available [address], [place], [address], 09/06/2023 17:15:12 09/06/19 24 09/06/2023 urina lysis , dipst ick Specific Beardsley (reference range: 1.005-1.030) 1.025 Not Available [address], [place], [address], 09/06/2023 17:15:12 09/06/19 24 09/06/2023 urina lysis , dipst ick Ketone (reference range: negative mg/dl) Trace Not Available [address], [place], [address], 09/06/2023 17:15:12 09/06/19 24 09/06/2023 urina lysis , dipst ick Bilirubin (reference range: negative mg/dl) Negati ve Not Available [address], [place], [address], 09/06/2023 17:15:12 09/06/19 24 09/06/2023 urina lysis , dipst ick Glucose (reference range: negative mg/dl) Negati ve Not Available [address], [place], [address], 09/06/2023 17:15:12 09/06/19 24 09/06/2023 urina lysis , dipst ick Appearance Slight ly Cloudy Not Available [address], [place], [address], 09/06/2023 17:15:12 09/06/19 24 09/06/2023 urina lysis , dipst ick Color Dark Yellow Not Available [address], [place], [address], 09/06/2023 17:15:12 07/12/19 25 07/11/2024 urina lysis , dipst ick Leukocytes (reference range: negative manisha/ l) Negati ve Not Available [address], [place], [address], 07/11/2024 17:40:52 07/12/19 25 07/11/2024 urina lysis , dipst ick Nitrite (reference rage: negative mg/dl) negati ve Not Available [address], [place], [address], 07/11/2024 17:40:52 07/12/19 25 07/11/2024 urina lysis , dipst ick Urobilinogen (reference range: 0.2-1 mg/dl) 0.2 Not Available [address], [place], [address], 07/11/2024 17:40:52 07/12/19 25 07/11/2024 urina lysis , dipst ick Protein (reference range: negative mg/dl) Negati ve Not Available [address], [place], [address], 07/11/2024 17:40:52 07/12/19 25 07/11/2024 urina lysis , dipst ick pH (reference range: 5-7) 5.0 Not Available [address], [place], [address], 07/11/2024 17:40:52 07/12/19 25 07/11/2024 urina lysis , dipst ick Blood (reference range: negative Tim/ l) Negati ve Not Available [address], [place], [address], 07/11/2024 17:40:52 07/12/1907/11/2024 urina lysis , dipst ick Specific Beardsley (reference range: 1.005-1.030) 1.005 Not Available [address], [place], [address], 07/11/2024 17:40:52 07/12/19 25 07/11/2024 urina lysis , dipst ick Ketone (reference range: negative mg/dl) Negati ve Not Available [address], [place], [address], 07/11/2024 17:40:52 07/12/19 25 07/11/2024 urina lysis , dipst ick Bilirubin (reference range: negative mg/dl) Negati ve Not Available [address], [place], [address], 07/11/2024 17:40:52 07/12/1907/11/2024 urina lysis , dipst ick Glucose (reference range: negative mg/dl) Negati ve Not Available [address], [place], [address], 07/11/2024 17:40:52 07/12/19 25 07/11/2024 urina lysis , dipst ick Appearance Clear Not Available [address], [place], [address], 07/11/2024 17:40:52 07/12/19 25 07/11/2024 urina lysis , dipst ick Color Pale Yellow Not Available [facility] [address], [place], [address], 07/11/2024 17:40:52 10/19/19 23 10/17/2022 XR, chest No observ ation record ed. [email or web address] [address] [facility], [place], [address], 10/20/2022 10:09:54 09/21/19 24 09/20/2023 US, pelvi s, compl ete No observ ation record ed. [email or web address] [address] [facility], [place], [address], 09/23/2023 17:06:39 11/04/19 24 11/03/2023 MAMMO , scree siomara, digit al, bilat eral No observ ation record ed. [email or web address] [address] [facility], [place], [address], 11/08/2023 09:52:03 Result Notes None recorded. Problems Name Problem SNOMED Code Status Onset Date Resolution Date Notes Provider Name and Address Organization Details Recorded Time Herpes labialis 2383766 Active 2021 Not Available [facility] 3 01:33:38 Hypothyroidis m 74831359 Active 2021 Not Available [employer] 3 01:33:38 Essential hypertension 27789651 Active 2021 Not Available [employer] 3 01:33:38 Diabetes mellitus 06186325 Active 2021 Not Available [employer] 3 01:33:38 Cellulitis of skin 166452938 Active 2022 MATA [facility] [address] [facility], [facility] [address], [place], [address] , [facility] 3 15:47:00 Hiatal hernia with gastroesophag eal reflux 061380862 Active 2022 CECY Madden [address], [place], [address] , [facility] 3 15:50:14 Urinary symptoms 979144013 Active 2023 CECY Bañuelos [address], [place], [address] , [facility] 4 17:15:06 Menopausal flushing 034792177 Active 2023 CECY Bañuelos [address], [place], [address] , [facility] 4 17:16:57 Vaginal lesion 823103621 Active 2023 CECY Bañuelos [address], [place], [address] , [facility] 4 17:31:12 Acute urinary tract infection 080228433 Active 2023 CECY Bañuelos [address], [place], [address] , [facility] 4 17:38:01 Cyst of vagina 20623589 Active 2023 CECY Bañuelos [address], [place], [address] , [facility] 4 16:29:26 Inflammatory dermatosis 614369190 Active 2024 CECY Bañuelos [address], [place], [address] , [facility] 5 17:24:12 Lymphedema 179734975 Active 2024 CECY Bañuelos [address], [place], [address] , [facility] [employer] [facility] 17:27:07 Lymphadenopat hy 12709820 Active 2024 CECY Bañuelos [address] [address], [place], [address] , [facility] [employer] [facility] [employer] [facility] 17:27:56 Hypertensive disorder 75310942 Active 2024 CECY Bañuelos [address] [address], [place], [address] , [employer] [facility] [employer] [facility] 17:29:40 Hyperlipidemi a 37673441 Active 2024 CECY Bañuelos [address] [employer], [address] [address], [place], [address] , [employer] [facility] [employer] [facility] 17:29:40 Disorder of bone and articular cartilage 933857343 Active 2024 CECY Bañuelos [address] [address], [place], [address] , [employer] [facility] [employer] [facility] 17:29:40 Dysuria 12325037 Active 2024 CECY Bañuelos [address] [address], [place], [address] , [employer] [facility] [employer] [facility] 17:40:48 Problem Notes None recorded. Procedures Surgical History Date Name Laterality Status Provider Name and Address Organization Details Recorded Time laparoscopic sleeve gastrectomy completed Not Available [facility] 04/16/2022 01:33:14 Imaging Results None recorded. Procedure Notes None recorded. Medical Equipment None Reported. Allergies Allergen ID Allergen Name Allergen Category Reaction Reaction Severity Criticality Documentation Date Start Date Code Code System Note Provider Name and Address Organization Details Recorded Time 04357 Substance with sulfonami de structure and antibacte rial mechanism of action (substanc e) medicatio n angioedem a hives Not available Not available Not available 04/16/2022 46474 8003 SNOMED Not Available [facility] 3 01:34:25 Medications Name Sig Start Date Stop Date Status Note LastModified by Organization Details LastModified Time valacyclovi r 1 gram tablet TAKE 1 TABLET BY MOUTH EVERY 12 HOURS FOR 7 DAYS active Not Available Not Available No t Available minocycline 100 mg capsule TAKE 1 CAPSULE BY MOUTH EVERY 12 HOURS FOR 10 DAYS active Not Available Not Available No t Available phenazopyri dine 200 mg tablet TAKE 1 TABLET BY MOUTH THREE TIMES DAILY WITH MEALS FOR 2 DAYS 09/05 completed Not Available Not Available Not Available lisinopril 20 mg tablet TAKE 1 TABLET BY MOUTH EVERY DAY 2024 active Not Available Not Available Not Avai [employer] estradiol 1 mg tablet TAKE 1 TABLET BY MOUTH EVERY DAY active Not Available Not Available No t Available clindamycin 1 % topical gel APPLY THIN COAT TO AFFECTED AREA TWICE A DAY 09/05 completed Not Available Not Available Not Available dicyclomine 20 mg tablet TAKE 1 TABLET BY MOUTH FOUR TIMES DAILY 09/05 completed Not Available Not Available Not Available levothyroxi ne 50 mcg tablet TAKE 1 TABLET BY MOUTH EVERY DAY 2024 active Not Available Not Available Not Avai [employer] cephalexin 500 mg capsule TAKE 1 CAPSULE BY MOUTH THREE TIMES DAILY FOR 10 DAYS 09/05 completed Not Available Not Available Not Available hydrochloro thiazide 12.5 mg capsule TAKE 1 CAPSULE BY MOUTH EVERY DAY FOR 90 DAYS active Not Available Not Available No t Available ibuprofen 600 mg tablet TAKE 1 TABLET BY MOUTH EVERY 6 HOURS NEEDED FOR PAIN active Not Available Not Available No t Available methylpredn isolone 4 mg tablets in a dose pack TAKE 6 TABLETS ON DAY 1 DIRECTED ON PACKAGE AND DECREASE BY 1 TAB EACH DAY FOR A TOTAL OF 6 DAYS active Not Available Not Available No t Available nitrofurant oin monohydrate /macrocryst als 100 mg capsule TAKE 1 CAPSULE BY MOUTH EVERY 12 HOURS FOR 5 DAYS 07/11 completed Not Available Not Available Not Available ID NOW COVID-19 Test Kit TEST DIRECTED TODAY 11/05 completed Not Available Not Available Not Available [employer] COVID-19 Ag Self Test kit TEST DIRECTED TODAY 11/05 completed Not Available Not Available Not Available Vitals Date Recorded Body height Body mass index (BMI) Body weight Body temperature Heart rate Oxygen saturation Oxygen saturation in Arterial blood by Pulse oximetry Systolic And Diastolic Provider Name and Address Organization Details Last Updated DateTime 5 165.1 cm 21.3 kg/m2 94831.8 2 g 98.5 [degF] 66 /min 98 % 98 % 110/68 mm[Hg] AFSHIN Collins [facility] [email or web address] [facility] 5 17:18:01 Date Recorded Body height Body mass index (BMI) Body weight Body temperature Heart rate Oxygen saturation Oxygen saturation in Arterial blood by Pulse oximetry Systolic And Diastolic Provider Name and Address Organization Details Last Updated DateTime 4 165.1 cm 20.5 kg/m2 26077.8 6 g 98.1 [degF] 75 /min 98 % 98 % 106/78 mm[Hg] Jzamin Rivers RN [facility] [employer] [facility] 4 17:03:15 Date Recorded Body height Body mass index (BMI) Body weight Body temperature Heart rate Oxygen saturation Oxygen saturation in Arterial blood by Pulse oximetry Systolic And Diastolic Provider Name and Address Organization Details Last Updated DateTime 3 165.1 cm 25 kg/m2 84685.8 6 g 96 [degF] 72 /min 99 % 99 % 118/74 mm[Hg] Neva Britt CMA [facility] [employer] [facility] 3 15:44:59 Date Recorded Body mass index (BMI) Body height Oxygen saturation Oxygen saturation in Arterial blood by Pulse oximetry Heart rate Body temperature Body weight Systolic And Diastolic Provider Name and Address Organization Details Last Updated DateTime 2 23.6 kg/m2 165.1 cm 99 % 99 % 55 /min 97.6 [degF] 63490.1 2 g 116/68 mm[Hg] Not Available [facility] 3 01:33:30 Social History Question Answer Notes LastModified by Organizat ion Details LastModified Time Tobacco Smoking Status Never Smoker Not Available [facility] 04/16/2022 01:33:04 If You Are , What Was Your Level Of Alcohol Consumption Prior To ? None [id number] Information not available 04/16/2022 What Is Your Level Of Caffeine Consumption? Occasional [id number] Information not available 04/16/2022 In The 14 Days Before Symptom Onset, Have You Had Close Contact With A Laboratory-confirm ed COVID-19 While That Case Was Ill? No [id number] Information not available 04/16/2022 In The 14 Days Before Symptom Onset, Have You Had Close Contact With A Person Who Is Under Investigation For COVID-19 While That Person Was Ill? No [id number] Information not available 04/16/2022 What Type Of Diet Are You Following? REGULAR [id number] Information not available 04/16/2022 Have You Ever Been Counseled For Unhealthy Alcohol Use? No [id number] Information not available 04/16/2022 Has Tobacco Cessation Counseling Been Provided? No [id number] Information not available 04/16/2022 Do You Have Any Dietary Restrictions? No [id number] Information not available 04/16/2022 Sex: Unknown Functional Status Question Answer Note LastModified by Organizat ion Details LastModified Time Do you use any illicit or recreational drugs? No [id number] Information not available 04/16/2022 Do you or have you ever used any other forms of tobacco or nicotine? No [id number].[id number] 026 Information not available 04/16/2022 What is your level of alcohol consumption? Occasional [id number] 026 Information not available 04/16/2022 What is your exercise level? Moderate [id number].[id number] 026 Information not available 04/16/2022 Mental Status None recorded. Family History Relationship Description Onset Age of this Age Resolved Age Notes LastModified by Organization Details LastModified Time Father Hypertensive disorder [id number] Not available 04/16/2022 01:33:17 Father Diabetes mellitus [id number] Not available 04/16/2022 01:33:17 Maternal Grandmother Family history of malignant neoplasm [id number] Not available 04/16/2022 01:33:17 Medical History No medical history recorded. Gynecological History Statement/Question Response Sexually Active? Y Menses Monthly N STIs/STDs N Current Control Method Hysterectom y Breast Problems no Discharge no Obstetrics History GPAL:G 0 P 0 0 0 0 Past Encounters Encounter ID Performer Location Encounter Start Date Encounter Closed Date Diagnosis/Indication Diagnosis SNOMED-CT Code Diagnosis ICD10 Code Diagnosis IMO Codes Diagnosis Note [id number] KOTA Myers [facility] Jennifer sylvester [address] [facility] [address] [facility] [place] [address] 11/05/2021 00:00:00 11/05/2021 09:29:28 [id number] Halle Segundo MD [facility] [address] [place] [address] 10/26/2022 15:30:00 10/26/2022 18:07:08 Hiatal hernia with gastroesophageal reflux 033957397 K21.9 Notes more complicati ons since 10/17, sharp chest pain, trouble breathing, tightness to abdWent to ER for f/uCT scan shows hiatal herniaTake s dicyclomin e BID currently, encouraged to take QID for the next couple daysIs having to sleep in a sitting up positionNo t taking anything for GERD-decli nan meds [id number] CECY Bañuelos [facility] [address] [place] [address] 09/06/2023 16:56:55 09/06/2023 17:33:43 Adult health examination 952338917 Z00.00 Z00.01 Essential hypertension 32130236 I10 Diabetes mellitus 524597 09 E11.9 Screening for malignant neoplasm of breast 896605069 Z12.39 Gynecologi c examination 49372026 Z01.419 Urinary symptoms 2302628 08 R39.9 Menopausal flushing 1984 58173 N95.1 Vaginal lesion 883814532 N94.89 [id number] CECY Bañuelos [facility] [address] [place] [address] 07/11/2024 17:09:52 07/11/2024 17:42:14 Herpes labialis 0019860 B00.1 Inflammato ry dermatosis 856460871 L30.9 02601 Lymphedema 407162394 I89 .0 71557 Lymphadenopathy 70101262 R59.9 [id number] multiple swollen lymph nodes in neck.Will order imaging and labs as listed below.Elizabeth ent aware that if symptoms worsen she should present to ER. Family his tory of Autoimmune disease 943253953 Z83.2 [id number] Dysuria 69360431 R30.0 [id number] CECY Bañuelos [facility] [address] [place] [address] 07/12/2024 10:39:18 07/12/2024 11:02:41 Health Concerns Section Related Observation LastModified by Organization Detai ls LastModified Time None Recorded Concern Status LastModified by Organization Details LastModified Time None Recorded Advance Directives Directive None Recorded Payers Insurance Date Sequence Insurance Name Policy Number Policy Bowman Covered Member ID Bowman Member ID Guarantor Name 07/11/2024 1 [facility] (MEDICAID HMO) [id number] Dusty Raphael [id number] Ijeoma Montano Notes Date Note Type Note Provider Name and Address Organization Details Recorded Time 10/26/2022 text/html Pt is here for check up and referral CECY Madden [address] [facility], [address] [address], [place], [address], [employer] 10/26/2022 17:47:56 09/06/2023 text/html ROS as noted in the HPI Patient is a 42 year old female that presents to the office for annual wellness and well woman exam. Patient reports urinary hesitancy and malodorous urine that is mauro color. Patient denies all other medical concerns at this time including chest pain and shortness of breath, nausea vomiting and diarrhea. Patient reports she has been eating healthy and exercising. labs-orderedmammo- orderedWWE-updated today...abnormal PAP several years ago, LEEP procedure, partial hysterectomy in 2009Flu-declinesCo vdn-uiadovupUzit-G TD. CECY Bañuelos [address] [facility], [facility] [address], [place], [address], [employer] 09/06/2023 17:35:49 07/11/2024 text/html ROS as noted in the HPI Patient is a 43 year old female that presents to the office for acute visit.Patient had a cold sore on right upper inner lip appear a few days ago, since then patient has had painful sores/rash appear on face from below eyes to chin. Patient reports sores are very painful, has been treating with Ibuprofen which is helpful for a couple of hours. Patient also reports swollen lymph nodes and her neck feels tight. Denies chest pain, shortness of breath and difficulty swallowing. Nazia Reed, [employer] [address] [facility], [facility] [address], [place], [address], [facility] 07/11/2024 22:52:08 OBGyn Episode No OBEpisode recorded.
--- OUTSIDE RECORDS SUMMARY | 2024-11-11 22:28 | XMS_ITS | Data Portability ---
Author Organization Dennis CAMPBELL Address [address] [place] [address] Care Team Providers Care Cook Helper Juice Name Role Phone EMILY EGNAO Primary Care Provider Assessment Encounter Date Assessment Date Assessment LastModified by Organization Details LastModified Time 04/09/2021 04/09/2021 F/u in 6 wks for routine blood work. Would like to check female hormone levels. CBC, CMP, lipid, a1c, TSH, FSH, LH, estradiol [email or web address] Not available 04/10/2021 13:54:30 Plan of Treatment Reminders Order Date Submit Date Provider Last Modified By Organization Details Last Modified Time Details Appointments None recorded. Lab rapid SARS CoV 2 Ag, QL IA, respiratory specimen 2022 023 TED In-Office Order, Internal Use Only DO Not Attach Compendium DO Not Attach Compendium, Do Not Delete/merge, [id number] 3 12:44:49 culture, urine 2022 023 TED [facility], [address], [place], [address], 3 17:09:17 urinalysis, dipstick 2022 023 TED [facility], [address], [place], [address], 3 10:54:33 urinalysis, dipstick 2022 023 [email or web address] In-Office Order, Internal Use Only DO Not Attach Compendium DO Not Attach Compendium, Do Not Delete/merge, [id number] 3 12:28:51 CMP, serum or plasma 2021 [facility], [address], [place], [address], 09:34:25 lipid panel, serum 2021 [facility], [address], [place], [address], 09:34:25 CBC w/ auto diff 2021 [facility], [address], [place], [address], 09:34:24 TSH + free T4, serum 2021 [facility], [address], [place], [address], 09:34:23 HbA1c (hemoglobin A1c), blood 2021 [facility], [address], [place], [address], 09:34:26 Referral None recorded. Procedures None recorded. Surgeries None recorded. Imaging XR, lower extremity - left lower leg 2021 022 [facility], [facility] [address], [place], [address], 2 14:48:07 XR, cervical spine, 2 or 3 view 2021 [facility], [facility]0 [facility] [address], [place], [address], 2 14:48:07 US, duplex, venous, lower extremity, complete 2021 [facility], [address] [facility] [address], [place], [address], 2 08:24:35 US, duplex, arterial, lower extremity, complete [address] [facility], [address] [facility] [address], [place], [address], 2 15:41:22 MAMMO, screening, bilateral [address] [facility], [address] [facility] [address], [place], [address], 2 16:46:54 Medication Orders cephalexin 500 mg capsule 2022 023 [id number], [address] [place] [address], [id number], 3 12:29:12 Pyridium 200 mg tablet 2022 023 [place]025, [address] [place] [address], [id number], 3 12:29:13 clindamycin 1 % topical gel 2021 022 Alexis Bittar [facility] #3259, [address] [place], [address], 2 11:16:25 hydrochloro thiazide 12.5 mg capsule 2021 022 [employer] [facility] #3259, [address] [place], [address], 2 16:46:23 prednisone 20 mg tablet 2020 021 Alexis Bittar [facility] #2510, [address] [place], [address], 2 12:41:42 Patient TargetsNo targets recorded. Patient Instructions Encounter Date Encounter Id Patient Instructions Last Modified By Organization Details Last Modified Time 06/11/2022 [id number] A healthy lifestyle: care instructions [email or web address] Not available 06/11/2022 12:28:51 Reason for Referral None Reported. Results Created Date Observation Date Name Description Value Unit Range Abnormal Flag Note LastModifiedBy Organization Detail LastModifiedTime 07/23/19 22 07/23/2021 TSH+F REE T4 TSH 0.773 uIU/m L 0.450- 4.500 Not Available [facility] ([facility]) [address] [place], [address], 07/23/2021 09:34:23 07/23/19 22 07/23/2021 TSH+F REE T4 T4,free(dire ct) 1.58 NG/dL 0.82-1 .77 Not Available [facility] ([facility]) [address] [place], [address], 07/23/2021 09:34:23 07/23/19 22 07/23/2021 CBC WITH DIFFE RENTI AL/PL ATELE T WBC 7.3 x10e3 /uL 3.4-10 .8 Not Available [facility] ([facility]) [address] [place], [address], 07/23/2021 09:34:24 07/23/19 22 07/23/2021 CBC WITH DIFFE RENTI AL/PL ATELE T RBC 5.17 x10e6 /uL 3.77-5 .28 Not Available [facility] ([facility]) [address] [place], [address], 07/23/2021 09:34:24 07/23/19 22 07/23/2021 CBC WITH DIFFE RENTI AL/PL ATELE T hemoglobin 15.2 g/dL 11.1-1 5.9 Not Available [facility] ([facility]) [address] [place], [address], 07/23/2021 09:34:24 07/23/19 22 07/23/2021 CBC WITH DIFFE RENTI AL/PL ATELE T hematocrit 45.7 % 34.0-4 6.6 Not Available [facility] ([facility]) [address] [place], [address], 07/23/2021 09:34:24 07/23/19 22 07/23/2021 CBC WITH DIFFE RENTI AL/PL ATELE T MCV 88 fL 79-97 Not Available [facility] ([facility]) [address] [place], [address], 07/23/2021 09:34:24 07/23/19 22 07/23/2021 CBC WITH DIFFE RENTI AL/PL ATELE T MCH 29.4 pg 26.6-3 3.0 Not Available [facility] ([facility]) [address] [place], [address], 07/23/2021 09:34:24 07/23/19 22 07/23/2021 CBC WITH DIFFE RENTI AL/PL ATELE T MCHC 33.3 g/dL 31.5-3 5.7 Not Available [facility] ([facility]) [address] [place], [address], 07/23/2021 09:34:24 07/23/19 22 07/23/2021 CBC WITH DIFFE RENTI AL/PL ATELE T RDW 12.1 % 11.7-1 5.4 Not Available [facility] ([facility]) [address] [place], [address], 07/23/2021 09:34:24 07/23/19 22 07/23/2021 CBC WITH DIFFE RENTI AL/PL ATELE T platelets 263 x10e3 /uL 150-45 0 Not Available [facility] ([facility]) [address] [place], [address], 07/23/2021 09:34:24 07/23/19 22 07/23/2021 CBC WITH DIFFE RENTI AL/PL ATELE T neutrophils 61 % not estab. Not Available [facility] ([facility]) [address] [facility], [place], [address], 07/23/2021 09:34:24 07/23/19 22 07/23/2021 CBC WITH DIFFE RENTI AL/PL ATELE T lymphs 29 % not estab. Not Available [facility] ([facility]) [address] [facility], [place], [address], 07/23/2021 09:34:24 07/23/19 22 07/23/2021 CBC WITH DIFFE RENTI AL/PL ATELE T monocytes 8 % not estab. Not Available [facility] ([facility]) [address] [facility], [place], [address], 07/23/2021 09:34:24 07/23/19 22 07/23/2021 CBC WITH DIFFE RENTI AL/PL ATELE T eos 1 % not estab. Not Available [facility] ([facility]) [address] [facility], [place], [address], 07/23/2021 09:34:24 07/23/19 22 07/23/2021 CBC WITH DIFFE RENTI AL/PL ATELE T basos 1 % not estab. Not Available [facility] ([facility]) [address] [facility], [place], [address], 07/23/2021 09:34:24 07/23/19 22 07/23/2021 CBC WITH DIFFE RENTI AL/PL ATELE T immature cells LOG COOKER Not Available [facility] ([facility]) [address] [place], [address], 07/23/2021 09:34:24 07/23/19 22 07/23/2021 CBC WITH DIFFE RENTI AL/PL ATELE T neutrophils (absolute) 4.5 x10e3 /uL 1.4-7. 0 Not Available [facility] ([facility]) [address] [place], [address], 07/23/2021 09:34:24 07/23/19 22 07/23/2021 CBC WITH DIFFE RENTI AL/PL ATELE T lymphs (absolute) 2.1 x10e3 /uL 0.7-3. 1 Not Available [facility] ([facility]) [address] [facility], [place], [address], 07/23/2021 09:34:24 07/23/19 22 07/23/2021 CBC WITH DIFFE RENTI AL/PL ATELE T monocytes(ab solute) 0.6 x10e3 /uL 0.1-0. 9 Not Available [facility] ([facility]) [address] [facility], [place], [address], 07/23/2021 09:34:24 07/23/19 22 07/23/2021 CBC WITH DIFFE RENTI AL/PL ATELE T eos (absolute) 0.1 x10e3 /uL 0.0-0. 4 Not Available [facility] ([facility]) [address] [facility], [place], [address], 07/23/2021 09:34:24 07/23/19 22 07/23/2021 CBC WITH DIFFE RENTI AL/PL ATELE T baso (absolute) 0.1 x10e3 /uL 0.0-0. 2 Not Available [facility] ([facility]) [address] [facility], [place], [address], 07/23/2021 09:34:24 07/23/19 22 07/23/2021 CBC WITH DIFFE RENTI AL/PL ATELE T immature granulocytes 0 % not estab. Not Available [facility] ([facility]) [address] [facility], [place], [address], 07/23/2021 09:34:24 07/23/19 22 07/23/2021 CBC WITH DIFFE RENTI AL/PL ATELE T immature grans (abs) 0.0 x10e3 /uL 0.0-0. 1 Not Available [facility] ([facility]) [address], [place], [address], 07/23/2021 09:34:24 07/23/19 22 07/23/2021 CBC WITH DIFFE RENTI AL/PL ATELE T NRBC LOG COOKER Not Available [facility] ([facility]) [address], [place], [address], 07/23/2021 09:34:24 07/23/19 22 07/23/2021 CBC WITH DIFFE RENTI AL/PL ATELE T hematology comments: LOG COOKER Not Available [facility] ([facility]) [address], [place], [address], 07/23/2021 09:34:24 07/23/19 22 07/23/2021 COMP. METAB OLIC PANEL (14) glucose 83 mg/dL 65-99 Not Available [facility] ([facility]) [address], [place], [address], 07/23/2021 09:34:25 07/23/19 22 07/23/2021 COMP. METAB OLIC PANEL (14) BUN 19 mg/dL 6-24 Not Available [facility] ([facility]) [address] [place], [address], 07/23/2021 09:34:25 07/23/19 22 07/23/2021 COMP. METAB OLIC PANEL (14) creatinine 0.78 mg/dL 0.57-1 .00 Not Available [facility] ([facility]) [address] [place], [address], 07/23/2021 09:34:25 07/23/19 22 07/23/2021 COMP. METAB OLIC PANEL (14) eGFR 98 mL/mi n/1.7 3 >59 Not Available [facility] ([facility]) [address] [place], [address], 07/23/2021 09:34:25 07/23/19 22 07/23/2021 COMP. METAB OLIC PANEL (14) BUN/creatini ne ratio 24 9-23 above high normal Not Available [facility] ([facility]) [address] [facility] [place], [address], 07/23/2021 09:34:25 07/23/19 22 07/23/2021 COMP. METAB OLIC PANEL (14) sodium 140 mmol/ L 134-14 4 Not Available [facility] ([facility]) [address] [facility] [place], [address], 07/23/2021 09:34:25 07/23/19 22 07/23/2021 COMP. METAB OLIC PANEL (14) potassium 4.3 mmol/ L 3.5-5. 2 Not Available [facility] ([facility]) [address] [place], [address], 07/23/2021 09:34:25 07/23/19 22 07/23/2021 COMP. METAB OLIC PANEL (14) chloride 97 mmol/ L 96-106 Not Available [facility] ([facility]) [address] [place], [address], 07/23/2021 09:34:25 07/23/19 22 07/23/2021 COMP. METAB OLIC PANEL (14) carbon dioxide, total 29 mmol/ L 20-29 Not Available [facility] ([facility]) [address] [place], [address], 07/23/2021 09:34:25 07/23/19 22 07/23/2021 COMP. METAB OLIC PANEL (14) calcium 9.6 mg/dL 8.7-10 .2 Not Available [facility] ([facility]) [address] [place], [address], 07/23/2021 09:34:25 07/23/19 22 07/23/2021 COMP. METAB OLIC PANEL (14) protein, total 7.1 g/dL 6.0-8. 5 Not Available [facility] ([facility]) [address] [place], [address], 07/23/2021 09:34:25 07/23/19 22 07/23/2021 COMP. METAB OLIC PANEL (14) albumin 4.8 g/dL 3.8-4. 8 Not Available [facility] ([facility]) [address] [place], [address], 07/23/2021 09:34:25 07/23/19 22 07/23/2021 COMP. METAB OLIC PANEL (14) globulin, total 2.3 g/dL 1.5-4. 5 Not Available [facility] ([facility]) [address] [place], [address], 07/23/2021 09:34:25 07/23/19 22 07/23/2021 COMP. METAB OLIC PANEL (14) A/G ratio 2.1 1.2-2. 2 Not Available [facility] ([facility]) [address] [place], [address], 07/23/2021 09:34:25 07/23/19 22 07/23/2021 COMP. METAB OLIC PANEL (14) bilirubin, total 0.3 mg/dL 0.0-1. 2 Not Available [facility] ([facility]) [address] [place], [address], 07/23/2021 09:34:25 07/23/19 22 07/23/2021 COMP. METAB OLIC PANEL (14) alkaline phosphatase 41 IU/L 44-121 below low normal Not Available [facility] ([facility]) [address] [place], [address], 07/23/2021 09:34:25 07/23/19 22 07/23/2021 COMP. METAB OLIC PANEL (14) AST (SGOT) 13 IU/L 0-40 Not Available [facility] ([facility]) [address] [place], [address], 07/23/2021 09:34:25 07/23/19 22 07/23/2021 COMP. METAB OLIC PANEL (14) ALT (SGPT) 10 IU/L 0-32 Not Available [facility] ([facility]) [address] [facility], [place], [address], 07/23/2021 09:34:25 07/23/19 22 07/23/2021 LIPID PANEL WITH LDL/H DL RATIO cholesterol, total 226 mg/dL 100-19 9 above high normal Not Available [facility] ([facility]) [address] [place], [address], 07/23/2021 09:34:25 07/23/19 22 07/23/2021 LIPID PANEL WITH LDL/H DL RATIO triglyceride s 172 mg/dL 0-149 above high normal Not Available [facility] ([facility]) [address] [place], [address], 07/23/2021 09:34:25 07/23/19 22 07/23/2021 LIPID PANEL WITH LDL/H DL RATIO HDL cholesterol 58 mg/dL >39 Not Available [facility] ([facility]) [address] [place], [address], 07/23/2021 09:34:25 07/23/19 22 07/23/2021 LIPID PANEL WITH LDL/H DL RATIO VLDL cholesterol viviana 31 mg/dL 5-40 Not Available [facility] ([facility]) [address] [place], [address], 07/23/2021 09:34:25 07/23/19 22 07/23/2021 LIPID PANEL WITH LDL/H DL RATIO LDL chol calc ([facility]) 137 mg/dL 0-99 above high normal Not Available [facility] ([facility]) [address] [place], [address], 07/23/2021 09:34:25 07/23/19 22 07/23/2021 LIPID PANEL WITH LDL/H DL RATIO comment: LOG COOKER Not Available [facility] ([facility]) [address] [place], [address], 07/23/2021 09:34:25 07/23/19 22 07/23/2021 LIPID PANEL WITH LDL/H DL RATIO LDL/HDL ratio 2.4 ratio 0.0-3. 2 LDL/H DL Ratio Men Women 1/2 Avg.R isk 1.0 1.5 Avg.R isk 3.6 3.2 2X Avg.R isk 6.2 5.0 3X Avg.R isk 8.0 6.1 Not Available [facility] ([facility]) [address] [facility], [place], [address], 07/23/2021 09:34:25 07/23/19 22 07/23/2021 HEMOG LOBIN A1C hemoglobin A1C 5.1 % 4.8-5. 6 Predi abete s: 5.7 - 6.4 Diabe aspen: >6.4 Glyce milla contr ol for adult s with diabe aspen: <7.0 Not Available [facility] ([facility]) [address] [facility], [place], [address], 07/23/2021 09:34:26 05/09/19 23 05/08/2022 rapid SARS CoV 2 Ag, QL IA, respi rator y speci men rapid SARS CoV 2 Ag, QL IA, respiratory specimen negati ve Not Available In-Office Order Internal Use Only DO Not Attach Compendium DO Not Attach Compendium, Do Not Delete/merge, [id number] 05/08/2022 12:59:06 06/12/1906/13/2022 CT, NG, TRICH VAG BY JESSEE chlamydia by JESSEE Negati ve negati ve Not Available [facility] ([facility]) [address] [place], [address], 06/13/2022 06:14:15 06/12/19 23 06/13/2022 CT, NG, TRICH VAG BY JESSEE gonococcus by JESSEE Negati ve negati ve Not Available [facility] ([facility]) [address] [place], [address], 06/13/2022 06:14:15 06/12/19 23 06/13/2022 CT, NG, TRICH VAG BY JESSEE trich vag by JESSEE Negati ve negati ve Not Available [facility] ([facility]) [address] [place], [address], 06/13/2022 06:14:15 06/12/1906/16/2022 URINE CULTU RE,CO MPREH ENSIV E urine culture,comp rehensive Final report abnormal Not Available [facility] ([facility]) [address] [place], [address], 06/16/2022 17:09:17 06/12/19 23 06/16/2022 URINE CULTU RE,CO MPREH ENSIV E result 1 Commen t abnormal Esche xuan a coli, ident ified by an autom ated bioch emica l syste m. Cefaz ángel <=4 ug/mL Cefaz ángel with an MILLA <=16 predi cts susce ptibi lity to the oral agent s cefac tali, cefdi edwin, cefpo doxim e, cefpr ozil, cefur oxime , cepha lexin , and lorac arbef when used for thera py of uncom plica kalie urina ry tract infec tions due to E. coli, Klebs iella pneum oniae , and Prote us mirab ilis. Multi -Drug Resis tant Organ ism Great er than 100,0 00 colon y formi ng units per mL Not Available [facility] ([facility]) [address] [facility], [place], [address], 06/16/2022 17:09:17 06/12/19 23 06/16/2022 URINE CULTU RE,CO MPREH ENSIV E antimicrobia l susceptibili ty Commen t S = Susce ptibl e; I = Inter media te; R = Resis tant P = Posit agapito; N = Negat agapito MICS are expre ssed in micro grams per mL Antib iotic RSLT# 1 RSLT# 2 RSLT# 3 RSLT# 4 Amoxi cilli n/Cla vulan ic Acid I Ampic illin R Cefep eloise S Ceftr iaxon e S Cefur oxime S Cipro floxa rex S Ertap enem S Genta micin R Imipe nem S Levof loxac in S Merop enem S Nitro furan toin S Piper acill in/Ta zobac torres S Tetra cycli ne R Tobra mycin I Trime thopr im/Terry lfa R Not Available [facility] ([facility]) [address] [facility], [place], [address], 06/16/2022 17:09:17 06/12/1906/12/2022 LENORE EN AUTHO RIZAT ION written authorizatio n Commen t Lenore en Autho rizat ion Recei tomy. Autho rizat ion recei tomy from PER ORIGI NAL REQ 06-12 Logge d by Lupe Coates as Not Available [facility] ([facility]) [address] [facility], [place], [address], 06/16/2022 17:09:16 06/12/1906/11/2022 rapid SARS CoV 2 Ag, QL IA, respi rator y speci men rapid SARS CoV 2 Ag, QL IA, respiratory specimen negati ve Not Available In-Office Order Internal Use Only DO Not Attach Compendium DO Not Attach Compendium, Do Not Delete/merge, 06/11/2022 12:16:49 06/12/1906/11/2022 urina lysis , dipst ick Leukocytes Large Not Available In-Offi ce Order Internal Use Only DO Not Attach Compendium DO Not Attach Compendium, Do Not Delete/merge, 06/11/2022 12:18:20 06/12/1906/11/2022 urina lysis , dipst ick Nitrite negati ve Not Available In-Office Order Internal Use Only DO Not Attach Compendium DO Not Attach Compendium, Do Not Delete/merge, [facility] 06/11/2022 12:18:20 06/12/19 23 06/11/2022 urina lysis , dipst ick Urobilinogen .2 Not Available In-Of fice Order Internal Use Only DO Not Attach Compendium DO Not Attach Compendium, Do Not Delete/merge, [facility] 06/11/2022 12:18:20 06/12/19 23 06/11/2022 urina lysis , dipst ick Protein Negati ve Not Available In-Office Order Internal Use Only DO Not Attach Compendium DO Not Attach Compendium, Do Not Delete/merge, [facility] 06/11/2022 12:18:20 06/12/1906/11/2022 urina lysis , dipst ick pH 7.0 Not Available In-Office Order Internal Use Only DO Not Attach Compendium DO Not Attach Compendium, Do Not Delete/merge, [facility] 06/11/2022 12:18:20 06/12/19 23 06/11/2022 urina lysis , dipst ick Blood Non-He molyze d: Trace Not Available In-Office Order Internal Use Only DO Not Attach Compendium DO Not Attach Compendium, Do Not Delete/merge, [facility] 06/11/2022 12:18:20 06/12/19 23 06/11/2022 urina lysis , dipst ick Specific [place] 1.010 Not Available In-Off ice Order Internal Use Only DO Not Attach Compendium DO Not Attach Compendium, Do Not Delete/merge, [facility] 06/11/2022 12:18:20 06/12/19 23 06/11/2022 urina lysis , dipst ick Ketone Negati ve Not Available In-Office Order Internal Use Only DO Not Attach Compendium DO Not Attach Compendium, Do Not Delete/merge, [facility] 06/11/2022 12:18:20 06/12/19 23 06/11/2022 urina lysis , dipst ick Bilirubin Negati ve Not Available In-Office Order Internal Use Only DO Not Attach Compendium DO Not Attach Compendium, Do Not Delete/merge, [id number] 06/11/2022 12:18:20 06/12/19 23 06/11/2022 urina lysis , dipst ick Glucose Negati ve Not Available In-Office Order Internal Use Only DO Not Attach Compendium DO Not Attach Compendium, Do Not Delete/merge, [id number] 06/11/2022 12:18:20 06/12/19 23 06/11/2022 urina lysis , dipst ick Appearance Clear Not Available In-Offi ce Order Internal Use Only DO Not Attach Compendium DO Not Attach Compendium, Do Not Delete/merge, 06/11/2022 12:18:20 06/12/19 23 06/11/2022 urina lysis , dipst ick Color Yellow Not Available In-Office Order Internal Use Only DO Not Attach Compendium DO Not Attach Compendium, Do Not Delete/merge, [id number] 06/11/2022 12:18:20 05/19/19 22 05/18/2021 XR, chest , 2 view No observ ation record ed. [address] [place] [address], [id number], 05/19/2021 09:02:38 05/19/19 22 05/18/2021 XR, thora cic spine No observ ation record ed. [address] [place] [address], [id number], 05/19/2021 09:03:04 08/10/19 22 08/08/2021 US, dominic moseley s, lower extre mity, compl ete No observ ation record ed. [address], [address], 08/12/2021 16:21:00 08/12/19 22 08/08/2021 US, dominic moseley s, lower extre mity, compl ete No observ ation record ed. [address], [address], 08/12/2021 16:21:00 Result Notes None recorded. 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 YURI Alston Attn: Accountin g,[address] [facility], [place], [address], [place] [facility] 5 16:27:02 Full blood count outside reference range [id number] Completed 08/14/2016 VALERIE Sanchez NP Attn: Accountin g,[address] [facility], [place], [address], [place] [facility] 7 11:35:03 Hyperlipide jas 62565967 Active YURI Alston Attn: Accountin g,[address] [facility], [place], [address], [place] [facility] 5 15:06:11 Blood glucose outside reference range 529236475 Active YURI Alston Attn: Accountin g,[address] [place], [address], [place] [facility] 5 15:06:11 Essential hypertensio n 39227773 Active YURI Alston Attn: Accountin g,[address] [place], [address], [place] [facility] 5 17:25:08 Abnormal liver function 18282702 Active YURI Alston Attn: Stephanie cm,[address] [place], [address], [place] [facility] 5 17:25:08 Folliculiti s [id number] Completed 08/14/2016 VALERIE Sanchez NP Attn: Stephanie cm,[address] [place], [address], [place] [facility] 7 11:34:34 Disorder of vitamin D 137204676 Active YURI Alston Attn: Stephanie cm,[address] [place], [address], [place] [facility] 5 17:25:08 Allergic rhinitis 15329041 Active YURI Alston Attn: Stephanie cm,[address] [place], [address], [place] [facility] 5 17:25:08 Herpes simplex 27546257 Active YURI Alston Attn: Stephanie cm,[address] [place], [address], [place] [facility] 5 17:25:08 Chest pain 21901065 Active 2017 Rogelio Rivers MD [address], [place], [address], [place] [facility] 8 11:38:12 Family history of Atheroscler osis 787316971 Active 2017 Rogelio Rivers MD [address] [place], [address], [place] [facility] 8 11:38:36 Palpitation s 71106419 Active 2017 Rogelio Rivers MD [address] [place], [address], [place] [facility] 8 11:38:44 Hypothyroid ism 35637128 Active 2021 KOTA DIAL Attn: Stephanie cm[address] [facility], [place], [address], [facility] 13:55:18 Problem Notes None recorded. Procedures Surgical History Date Name Laterality Status Provider Name and Address Organization Details Recorded Time 03/26/19 21 Date of Last Pap Smear completed Joyisrael Sandoval [place] - [place] 03/26/2020 14:17:09 02/15/19 19 laparoscopic sleeve gastrectomy completed Joyisrael Sandoval [place] - [facility] 03/26/2020 14:26:08 02/15/19 19 Gastric Bypass completed Joyisrael Sandoval [facility] - [facility] 03/26/2020 14:25:49 02/15/19 10 Total hysterectomy completed Aurea Sanches MD Attn: Accounting, [address] [place], [address], [facility] - [facility] 10/01/2022 10:03:26 Cholecystectomy completed YURI Alston Attn: Accounting, [address] [place], [address], [facility] - [facility] 02/16/2014 15:06:24 [facility] 12/07[facility]2018 14:39:12 [facility] 14:39:39 section completed Vianey Naomi [place] - [facility] 12/07/2018 14:40:10 [facility] bilateral fall[facility] tubes [facility] 12/07/2018 14:40:23 Imaging Results None recorded. Procedure Notes None recorded. Medical Equipment None Reported. Allergies Allergen ID Allergen Name Allergen Category Reaction Reaction Severity Criticality Documentation Date Start Date Code Code System Note Provider Name and Address Organization Details Recorded Time 34336 Substance with sulfonami de structure and antibacte rial mechanism of action (substanc e) medicatio n Not available Not available Not available 02/16/2014 63704 [id number] SNOMED YURI Alston Attn: Stephanie cm,[address] [facility], [place], [address], [facility] - [facility] 15:01:44 17769 prednison e medicatio n Not available Not available Not available 09/25/2016 8640 RxNorm Cinthya Perez, TRUCK MANAGER null, [place] - [facility] 7 11:32:55 Medications Name Sig Start Date Stop Date Status Note LastModified by Organization Details LastModified Time cyclobenzap rine 10 mg tablet TAKE 1 TABLET BY MOUTH 3 TIMES A DAY NEEDED 09/07 completed Not Available Not Available Not Available metformin 500 mg tablet TAKE 1 TABLET BY MOUTH TWICE A DAY 09/07 completed Not Available Not Available Not Available prednisone 10 mg tablet 11/20 completed Not Available Not Available Not Available atorvastati n 20 mg tablet TAKE 1 TABLET BY MOUTH EVERY DAY 09/07 completed Not Available Not Available Not Available citalopram 40 mg tablet Take 1 tablet every day by oral route. 11/20 completed Not Available Not Available Not Available atorvastati n 10 mg tablet TAKE 1 TABLET BY MOUTH DAILY 03/22 completed Not Available Not Available Not Available lisinopril 20 mg-hydrochl orothiazide 12.5 mg tablet Take 1 tablet(s) every day by oral route. 08/14 completed Not Available Not Available Not Available azithromyci n 250 mg tablet 09/30 completed Not Available Not Available Not Available hydrocodone 5 mg-acetamin ophen 325 mg tablet 09/30 completed Not Available Not Available Not Available phenazopyri dine 200 mg tablet TAKE 1 TABLET BY MOUTH THREE TIMES DAILY WITH MEALS FOR 2 DAYS active Not Available Not Available No t Available lisinopril 20 mg tablet TAKE 1 TABLET BY MOUTH EVERY DAY active Not Available Not Available No t Available prednisone 20 mg tablet 60 mg po daily x 4 days, then 40 mg po daily x 4 days, then 20 mg po daily x 4 days 04/03 completed Not Available Not Available Not Available metronidazo le 250 mg tablet TAKE 1 TABLET BY MOUTH THREE TIMES A DAY 04/03 completed Not Available Not Available Not Available glipizide ER 5 mg tablet, extended release 24 hr Take 1 tablet every day by oral route with meals. 09/07 completed Not Available Not Available Not Available cyanocobala min (vit B-12) 1,000 mcg tablet Take 1 tablet every day by oral route. 05/31 completed Not Available Not Available Not Available hydroxyzine pamoate 50 mg capsule TAKE ONE CAPSULE BY MOUTH 3 TIMES A DAY NEEDED 09/07 completed Not Available Not Available Not Available phenytoin sodium extended 100 mg capsule TAKE 2 CAPSULES BY MOUTH TWICE A DAY 03/17 completed Not Available Not Available Not Available acetaminoph en 300 mg-codeine 30 mg tablet Take 1 tablet twice a day by oral route as needed. 11/20 completed Not Available Not Available Not Available acyclovir 400 mg tablet Take 1 tablet every day by oral route. 09/07 completed Not Available Not Available Not Available valacyclovi r 500 mg tablet TAKE 1 TABLET BY MOUTH TWICE A DAY 04/03 completed Not Available Not Available Not Available peg-electro lyte solution 420 gram oral solution 11/20 completed Not Available Not Available Not Available doxycycline monohydrate 100 mg tablet TAKE 1 TABLET BY MOUTH EVERY DAY 04/03 completed Not Available Not Available Not Available tramadol 50 mg tablet Take 1 tablet every 6 hours by oral route as needed for 7 days. 09/07 completed Not Available Not Available Not Available levothyroxi ne 25 mcg tablet 04/09 completed Not Available Not Available Not Available citalopram 20 mg tablet TAKE 1 TABLET BY MOUTH EVERY DAY 09/07 completed Not Available Not Available Not Available amitriptyli ne 25 mg tablet 11/20 completed Not Available Not Available Not Available clindamycin 1 % topical gel APPLY THIN COAT TO AFFECTED AREA TWICE A DAY active Not Available Not Available No t Available doxycycline monohydrate 100 mg capsule Take 1 capsule twice a day by oral route for 10 days. 03/17 completed Not Available Not Available Not Available levothyroxi ne 50 mcg tablet TAKE 1 TABLET BY MOUTH EVERY DAY active Not Available Not Available No t Available cephalexin 500 mg capsule TAKE 1 CAPSULE BY MOUTH THREE TIMES DAILY FOR 10 DAYS active Not Available Not Available No t Available hyoscyamine sulfate 0.125 mg tablet 12/23 completed Not Available Not Available Not Available naproxen sodium 550 mg tablet active Not Available Not Available No t Available metformin 1,000 mg tablet Take 1 tablet twice a day by oral route. 02/11 completed Not Available Not Available Not Available carbamazepi ne 100 mg chewable tablet Chew 1 tablet twice a day by oral route for 28 days. 01/13 completed Not Available Not Available Not Available promethazin e 25 mg tablet 11/20 completed Not Available Not Available Not Available minocycline 50 mg capsule Take 1 capsule every day by oral route active Not Available Not Available No t Available orphenadrin e citrate ER 100 mg tablet,exte nded release 11/20 completed Not Available Not Available Not Available hydrochloro thiazide 12.5 mg capsule TAKE 1 CAPSULE BY MOUTH EVERY DAY active Not Available Not Available No t Available nitroglycer in 0.[address] 1 tablet by sublingua l route. 09/07 completed Not Available Not Available Not Available gabapentin 300 mg capsule 11/20 completed Not Available Not Available Not Available omeprazole 20 mg capsule,del ayed release Take 1 capsule every day by oral route. 05/31 completed Not Available Not Available Not Available lisinopril 20 mg-hydrochl orothiazide 25 mg tablet Take 1 tablet(s) every day by oral route. 02/11 completed Not Available Not Available Not Available montelukast 10 mg tablet Take 1 tablet every day by oral route. 08/14 completed Not Available Not Available Not Available hydroxyzine HCl 25 mg tablet TAKE 1 TABLET THREE TIMES A DAY NEEDED 11/20 completed Not Available Not Available Not Available furosemide 20 mg tablet 11/20 completed Not Available Not Available Not Available ergocalcife rol (vitamin D2) 1,250 mcg (50,000 unit) capsule TAKE ONE CAPSULE BY MOUTH ONCE WEEKLY 05/31 completed Not Available Not Available Not Available pioglitazon e 30 mg tablet TAKE 1 TABLET BY MOUTH EVERY DAY 09/07 completed Not Available Not Available Not Available ondansetron 4 mg disintegrat ing tablet active Not Available Not Available N ot Available fluoxetine 20 mg capsule Take 1 capsule every day by oral route. 05/31 completed Not Available Not Available Not Available metformin ER 500 mg tablet,exte nded release 24 hr 09/30 completed Not Available Not Available Not Available dicyclomine 10 mg capsule 08/14 completed Not Available Not Available Not Available naproxen 500 mg tablet 11/20 completed Not Available Not Available Not Available Ventolin HFA 90 mcg/actuati on aerosol inhaler Inhale 2 puffs every 4 hours by inhalatio n route as needed. 09/07 completed Not Available Not Available Not Available nitrofurant oin monohydrate /macrocryst als 100 mg capsule 09/30 completed Not Available Not Available Not Available Lyrica 75 mg capsule TAKE 1 CAPSULE(S ) TWICE A DAY BY ORAL ROUTE. 09/07 completed Not Available Not Available Not Available Tylenol-Cod eine #3 12/23 completed Not Available Not Available Not Available biotin 05/31 completed Not Available Not Available Not Available Vitamin D 12/23 completed Not Available Not Available Not Available calcium citrate 05/31 completed Not Available Not Available Not Available multivitami n 05/31 completed Not Available Not Available Not Available garlic extract 12/23 completed Not Available Not Available Not Available [place] Oil 1,000 mg capsule Take by oral route. 05/31 completed Not Available Not Available Not Available omega 3 183.3 mg-dha 75 mg-epa 91.6 mg-fish oil 306 mg capsule Take 1 capsule 3 times a day by oral route. 08/14 completed Not Available Not Available Not Available Vitamin B12 05/31 completed Not Available Not Available Not Available ID NOW COVID-19 Test Kit TEST DIRECTED TODAY 08/15 completed Not Available Not Available Not Available BinaxNOW COVID-19 Ag Self Test kit TEST DIRECTED TODAY active Not Available Not Available No t Available Vitals Date Recorded Systolic And Diastolic Provider Name and Address Organization Details Last Updated DateTime 04/09/2021 130/78 mm[Hg] KOTA DIAL Attn: [place], [address], [facility] 04/09/2021 16:44:56 Date Recorded Body height Pain severity - 0-10 verbal numeric rating [Score] - Reported Respiratory rate Oxygen saturation Oxygen saturation in Arterial blood by Pulse oximetry Heart rate Body mass index (BMI) Body weight Body temperature Provider Name and Address Organization Details Last Updated DateTime 2 165.1 cm 0 16 /min 99 % 99 % 57 /min 24 kg/m2 60090.4 g 98.3 [degF] Gissel Juan RN [facility] 2 16:23:30 Date Recorded Body height Body mass index (BMI) Body weight Oxygen saturation Oxygen saturation in Arterial blood by Pulse oximetry Heart rate Respiratory rate Body temperature Systolic And Diastolic Provider Name and Address Organization Details Last Updated DateTime 3 165.1 cm 25 kg/m2 34281.8 6 g 97 % 97 % 80 /min 18 /min 98.4 [degF] 118/90 mm[Hg] Elaine Zambrano MA [facility] 3 12:03:59 Date Recorded Body height Body mass index (BMI) Body weight Oxygen saturation Oxygen saturation in Arterial blood by Pulse oximetry Heart rate Respiratory rate Systolic And Diastolic Provider Name and Address Organization Details Last Updated DateTime 2 165.1 cm 23.7 kg/m2 21683.8 2 g 98 % 98 % 75 /min 18 /min 100/72 mm[Hg] Divya Parker MA [facility] 2 15:21:10 Date Recorded Body height Oxygen saturation Oxygen saturation in Arterial blood by Pulse oximetry Heart rate Body mass index (BMI) Body weight Systolic And Diastolic Provider Name and Address Organization Details Last Updated DateTime 2 165.1 cm 98 % 98 % 75 /min 23.8 kg/m2 62924.7 1 g 122/66 mm[Hg] Divya Parker MA [facility] 2 14:28:50 Date Recorded Body height Systolic And Diastolic Provider Name and Address Organization Details Last Updated DateTime 09/09/2020 165.1 cm 110/60 mm[Hg] Isidra Orourke MA [facility] 09/09/2020 16:38:45 Social History Question Answer Notes LastModified by Organizat ion Details LastModified Time Tobacco Smoking Status Never Smoker Aylin Dela Cruz MA [facility], [facility] 02/16/2014 14:47:20 Do You Have An Advance Directive? No Information not available 07/22/2021 Are You Blind Or Do You Have Difficulty Seeing? No Information not available 07/22/2021 What Is Your Level Of Caffeine Consumption? Occasional [email or web address] Information not available 02/16/2014 How Much Tobacco Do You Chew? None Information not available 03/26/2020 In The 14 Days Before Symptom Onset, Have You Had Close Contact With A Laboratory-confir med COVID-19 While That Case Was Ill? No Information not available 07/22/2021 In The 14 Days Before Symptom Onset, Have You Had Close Contact With A Person Who Is Under Investigation For COVID-19 While That Person Was Ill? No Information not available 07/22/2021 Have You Been To An Area Known To Be High Risk For COVID-19? No Information not available 07/22/2021 Are You Deaf Or Do You Have Serious Difficulty Hearing? No Information not available 07/22/2021 What Type Of Diet Are You Following? REGULAR Information not available 02/16/2014 Which Illicit Or Recreational Drugs Have You Used? None Information not available 03/26/2020 Education 2 Year College Informatio n not available 02/16/2014 Are There Any Guns Present In Your Home? No Information not available 07/22/2021 Hard Of Hearing Or Deaf In One Or Both Ears? Yes L Ear Information not available 02/16/2014 Legally Blind In One Or Both Eyes? No [email or web address] Information no t available 02/16/2014 Marital Status Single [email or web address] Informatio n not available 02/16/2014 What Was The Date Of Your Most Recent Tobacco Screening? 08/22/2021 Information not available 08/15/2021 What Is Your Relationship Status? Single Information not available 07/22/2021 Seat Belts Used Routinely Yes [email or web address] Information not available 02/16/2014 Smoke Alarm In Home Yes Information not available 02/16/2014 Do You Have Smoke And Carbon Monoxide Detectors In Your Home? Yes Information not available 07/22/2021 At What Age Did You Start Smoking Tobacco? 0 N/a Information not available 03/26/2020 Are You Passively Exposed To Smoke? No Information no t available 07/22/2021 How Much Tobacco Do You Smoke? No Information not available 02/14/2018 Do You Use Sunscreen Routinely? Yes [email or web address] Information not available 02/16/2014 On What Date Was Tobacco Cessation Counseling Provided? 06/01/2019 Information not available 06/01/2019 How Many Years Have You Smoked Tobacco? 0 Information not available 02/14/2018 Sex: Female Functional Status Question Answer Note LastModified by Organizat ion Details LastModified Time Do you use any illicit or recreational drugs? No Information not available 07/22/2021 What is your level of alcohol consumption? Occasional [email or web address] Information not available 02/16/2014 Do you or have you ever used smokeless tobacco? Never used smokeless tobacco [email or web address] Information not available 12/11/2018 Are you currently employed? Yes Information not available 07/22/2021 Are you able to care for yourself independently? 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 Never used electronic cigarettes [email or web address] Information not available 12/11/2018 Mental Status Question Answer Note LastModified by Organization D etails LastModified Time Do you feel stressed (tense, restless, nervous, or anxious, or unable to sleep at night)? [id number] Information not available 07/22/2021 Family History Relationship Description Onset Age of this Age Resolved Age Notes LastModified by Organization Details LastModified Time Father Heart disease [email or web address] Not available 2014 16:48:27 Mother Neoplasm of ovary [email or web address] Not available 2014 16:48:27 Maternal Grandmother Malignant tumor of breast had surger y in 2018 for breast cancer Not available 04/08/2017 10:24:20 Medical History Condition Response Coronary Artery Disease N Other N High Blood Pressure Y Atrial Fibrillation N Thyroid Problems N Kidney or Bladder Problems N GI Problems N Depression N COPD N Blood Clots N Skin Problems N Eating Disorder N Anemia N Heart Attack (MD) N Anxiety Disorder N Diabetes N Muscle, Joint, or Bone Problems N Seizures/Epilepsy N Acid Reflux (GERD) N Cancer N Stroke N Asthma N Allergies N ADHD N Substance Abuse N High Cholesterol N Hepatitis N Liver Disease N Schizophrenia N Headaches N Heart Failure N Osteoporosis N Gynecological History Statement/Question Response Date of LMP Menses Monthly N Date of Last Pap Smear 03/26/2020 Age at Menarche 14 Current Control Method Hysterectom y Age at First Child 18 LMP Definite Obstetrics History GPAL:G 4 P 4 0 0 4 Type Value Multiple Births 0 Full Term 4 Induced 0 Spontaneous 0 Premature 0 Living 4 Ectopics 0 Total 4 Immunizations Vaccine Type Date Status Note Provider Nam e and Address Organization Details Recorded Time Tdap 08/14/2016 completed Not Available [facility] 03/04/2019 02:33:53 Past Encounters Encounter ID Performer Location Encounter Start Date Encounter Closed Date Diagnosis/Indication Diagnosis SNOMED-CT Code Diagnosis ICD10 Code Diagnosis IMO Codes Diagnosis Note [id number] [address] [place] [address] 02/16/2014 14:35:51 02/16/2014 16:27:43 Abnormal liver function 27798553 Disorder of vitamin D 755057212 Essential hypertension 86667800 Herpes simplex 97029576 Co nsider dose increase if unresponsi ve to current dose Allergic rhinitis 99249791 Acne vulgaris 26275779 Steatotic liver disease 314112697 Full blood count outside reference range 193036914 Folliculitis 49651875 [id number] David Hawk MD [facility] [address] [place] [address] 05/28/2014 16:40:04 05/28/2014 17:25:48 Full blood count outside reference range 598833297 Abnormal l iver function 37777262 Disorder of vitamin D 078479292 Acne vulgaris 24377734 Obese 144539149 Essential hypertension 73087115 Allergic rhinitis 40197765 Herpes simplex 01320266 Co nsider dose increase if unresponsi ve to current dose [id number] VALERIE Sanchez NP [facility] [address] [place] [address] 08/14/2016 10:54:48 08/14/2016 12:19:13 Active or passive immunization 410978361 Z23 Tdap administer ed HIV screening 972888380 Z11.4 HIV screening performed Numbness a nd tingling sensation of skin 7933314949 02 R20.2 Neurology referral Herpes simplex 95324790 B00.9 Refill valacyclov ir Obesity 416991631 E66.9 Obtain hgA1C Depressive disorder 3548 9007 F32.9 Start celexa as directed. Make apt with counseling at [facility] location Polycystic ovaries 85589 008 E28.2 Continue metformin [id number] VALERIE Sanchez NP [facility] [address] [place] [address] 09/25/2016 11:23:33 09/25/2016 16:40:56 Depressive disorder 69141364 F32.9 Increase celexa as directed. Make apt with counseling at [facility] location. Chronic neck pain 304662 9676 107 M54.2 D/c tramadol. Start tylenol #3 as directed. Also continue conservati ve tx to reduce pain. [id number] VALERIE Sanchez NP [facility] [address] [place] [address] 11/20/2016 14:09:47 11/23/2016 15:31:13 Depressive disorder 26636011 F32.9 Continue celexa as directed. Increase hydroxyzin e prn. Edema of l ower extremity 594992017 R60.0 Start HCTZ as directed. Numbness a nd tingling sensation of skin 1488904455 02 R20.2 Start lyrica. Chronic neck pain 922021 3314 107 M54.2 Flexeril orn [id number] VALERIE Sanchez NP [facility] [address] [place] [address] 12/18/2016 11:32:24 12/25/2016 12:08:36 Dyspnea at rest 998627847 R06.00 Obtain labs. F/u 1 week Right uppe r quadrant pain 045586026 R10.11 Obtain labs. F/u 1 week Edema of l ower extremity 463182498 R60.0 Continue HCTZ. Obtain labs. F/u 1 week Hyperlipidemia 72596686 E78.5 Start atorvastat in as directed. [id number] Sukhi West MD [facility] [address] [facility] [place] [address] 12/21/2016 11:02:23 01/06/2017 15:33:38 Hypothyroidism 04193165 E03.9 High hemog lobin A1c level 107947183 R73.09 [id number] VALERIE Sanchez NP [facility] [address] [place] [address] 12/22/2016 11:48:37 12/25/2016 12:12:50 Numbness and tingling sensation of skin 0403312725 02 R20.2 Patient requesting a NEW neuro referral, not at [facility]. Obtain labs per Dr. West. Hyperlipidemia 68703658 E78.5 Start atorvastat in. Repeat lipid panel 8 weeks. Steatotic liver disease 424303469 K76.0 Continue low fat diet, exercise, weight loss. Hypothyroidism 35809932 E03.9 Patient adamant about starting levothyrox ine after seeing her elevated TSH on patient portal. Start levothyrox ine. Repeat TSH in 8 weeks. Glucose le gary outside reference range 490889011 R73.09 Increase metformin to 500mg BID. [id number] VALERIE Sanchez NP [facility] [address] [place] [address] 12/25/2016 15:10:52 12/29/2016 15:37:37 Pain of breast 22692646 N64.4 Obtain diagnostic unilateral ultrasound and mammogram of left breast. Order given to patient. Mass of left breast 1224 018401 2570438 N63.20 [id number] VALERIE Sanchez NP [facility] [address] [place] [address] 01/13/2017 10:10:05 01/13/2017 15:55:35 Lymphadenopathy 60665218 R59.0 Will do a course of oral antibiotic s at this time. F/u if symptoms do not improve, will then refer to breast/gen eral surgeon for possible biopsy of the lymph node. [id number] VALERIE Sanchez NP [facility] [address] [place] [address] 03/17/2017 11:03:31 03/19/2017 09:39:03 Vitamin D deficiency 90868061 E55.9 Recheck Vit D level Hyperlipidemia 17299688 E78.5 Recheck CMP and lipid panel Hypothyroidism 21624961 E03.9 Recheck TSH Cough 39423831 R05 Obtain CBC. Start ventolin prn. Abnormal urine odor 8769 003 R82.90 UA normal [id number] Jemima Tee MD [facility] [address] [place] [address] 03/22/2017 14:01:32 03/23/2017 13:36:43 Chest pain 36019946 I20.9 discussed reasons to take NTG and to call 911. Advised baby aspirin daily. Impaired g lucose tolerance 4793473 R73.03 Patient is taking metformin. Discussed normal course of DM. Anterior c ervical lymphadenopathy 695673859 R59.0 Elevated WBC and persistent lymphadeno preethi; ?lymphoma or PV? Mixed hyperlipidemia 267 448717 E78.2 increase atorvastat in to 20 mg Hypothyroidism 72136407 E03.9 increase levothyrox ine to 50 mcg. Obstructiv e sleep apnea syndrome 67397869 G47.33 sleep apnea can worsen other medical problems and she has observed apnea. [id number] Jemima Tee MD [facility] [address] [place] [address] 04/16/2017 11:43:27 04/19/2017 17:24:35 Non-alcoholic fatty liver 983049008 K76.0 CT of abdomen done today; consider referral to Dr. Singer at [facility] for SANCHES study. Will screen for hepatitis and hemochroma tosis. Laboratory test result abnormal 272056023 R89.9 Patient has appointmen t with [facility] . Positive history of anemia requiring iron infusions before she had her hysterecto my. Family his tory of Ovarian carcinoma 146787338 Z80.41 mother has ovarian cancer; maternal grandmothe r with breast cancer; ?familial increased risk? Family his tory of malignant neoplasm of breast in first degree relative 359141386 Z80.3 Screening mammography 24 988230 Z12.31 has not had a bilateral baseline screening mammogram. Mixed hyperlipidemia 267 606166 E78.2 increased atorvastat in to 20 mg at previous visit; will see what her fasting blood work is doing now. [id number] Rogelio [place] MD [facility] ([facility]) [address] [place] [address] 04/21/2017 10:13:50 05/04/2017 17:00:14 Chest pain 63577326 R07.9 Palpitations 17123291 R0 0.2 Obese 654589961 E66.9 Hyperlipidemia 18661575 E78.5 Essential hypertension 57961157 I10 Steatotic liver disease 636818564 K76.0 Blood gluc ose outside reference range 931742274 R73.09 Family his tory of Atherosclerosis 073931977 Z82.49 [id number] Jemima Tee MD [facility] [address] [place] [address] 06/01/2017 16:21:03 06/01/2017 17:40:36 Micturition frequency and polyuria 083955341 R35.0 Glycosuria 89771538 R81 Exposure t o Streptococcus 176461940 Z20.818 Right flank pain 8505622 09 R10.9 Uncontroll ed type 2 diabetes mellitus 572968407 E11.65 [id number] Jemima Tee MD [facility] [address] [place] [address] 06/16/2017 14:43:15 06/17/2017 09:10:52 Essential hypertension 39385152 I10 will increase lisinopril to a higher dose for better control, and monitor sugars, kidney function, and liver tests. Hyperlipidemia 41450982 E78.2 will continue atorvastat in and consider increase in dose. Peripheral nerve disease 702830721 G64 evaluate for peripheral neuropathy causes; patient has intermitte nt pain, not today. Polycystic ovaries 26662 008 E28.2 will increase from 500 to 1000 mg bid Body mass index 30+ - obesity 548070310 Z68.35 continue with diet and exercise. Patient has polycystic ovaries and takes metfomin; will increase dose to help with weight loss and try to postpone diabetes. [id number] VALERIE Sanchez NP [facility] [address] [place] [address] 02/11/2018 12:44:53 02/11/2018 13:40:25 Polycystic ovaries 98883920 E28.2 -Decrease metformin to 500 mg BID, instead of 1000mg BID- pt having GI upset-DM diet Essential hypertension 71549246 I10 -BP great today-Pt reports ddecreased stress-Sta aspen she does not like the HCTZ-Maura henrry lisinopril 20 mg daily Hyperlipidemia 18061800 E78.5 -Recheck lipid panel Neuropathy due to diabetes mellitus 282038407 E11.40 -Continue lyrica Type 2 shefali betes mellitus 36103995 E11.9 -Obtain labs Hypothyroidism 03129371 E03.9 -Recheck TSH Strain of back muscle 26 1970716 S39.012A -Continue conservati ve tx- ice, heat, rest, stretching -Flexeril prn-Tyleno l prn-Tramad ol prn-F/u prn [id number] Jemima Tee MD [facility] [address] [place] [address] 06/16/2018 12:08:14 06/22/2018 08:56:20 Adult health examination 317506652 Z00.00 Screening mammography 24 530813 Z12.31 has not had a bilateral baseline screening mammogram. Herpes simplex 41306160 B00.9 Body mass index 30+ - obesity 186604912 Z68.36 discussed bariatric surgery and importance of following appropriat e diet. [id number] Jemima Tee MD [facility] [address] [place] [address] 09/07/2018 15:05:22 09/12/2018 10:45:19 History of sleeve gastrectomy 9784358382 31765 Z90.3 [id number] Jemima Tee MD [facility] [address] [place] [address] 12/07/2018 14:29:53 12/12/2018 09:58:53 Gastroesophageal reflux disease without esophagitis 960535156 K21.9 Depressive disorder 8478 9007 F32.9 citalopram is not working as well as it should. Adult [facility] th examination 169249256 Z00.00 Screening mammography 24 455188 Z12.31 has not had a bilateral baseline screening mammogram. Dysuria 38049507 R30.9 [id number] Jemima Tee MD [facility] [address] [place] [address] 06/01/2019 10:20:54 06/07/2019 17:02:06 Screening mammography 59657611 Z12.31 Hypothyroidism 17563717 E03.9 Adult heal th examination 961763763 Z00.00 Essential hypertension 01197447 I10 will increase lisinopril to a higher dose for better control, and monitor sugars, kidney function, and liver tests. Dysuria 24116743 R30.9 [id number] Jemima Tee MD [facility] [address] [place] [address] 09/25/2019 09:38:54 10/02/2019 08:19:12 Screening mammography 68999132 Z12.31 Adult heal th examination 286045026 Z00.00 Hypothyroidism 73091616 E03.9 will adjust dose if the TSH is elevated. Essential hypertension 14570827 I10 will renew the lisinopril Herpes simplex 52841453 B00.9 this seems to be effective and well tolerated. [id number] Jemima Tee MD [facility] [address] [place] [address] 01/29/2020 08:49:28 02/07/2020 03:48:04 [id number] Jemima Tee MD [facility] [address] [place] [address] 03/26/2020 14:15:39 04/01/2020 11:39:39 Gynecologic examination 83747263 Z01.419 Screening mammography 24 257985 Z12.31 Bacterial vaginosis 4197 51642 N76.0 patient advised to avoid alcohol Adult heal th examination 118282174 Z00.00 Rosacea 546013782 L71.9 Depression screening 171 684865 Z13.31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
[2024-11-11 23:35] VITALS: BP 117/78; PULSE 60; RESP 16; O2SAT 100
== END 2024-11-11 23:37 | disposition home or self-care (01) ==
PROVIDERS: Emergency Provider Emergency Medicine; PCP Nurse Practitioner Family
DX: S67.192A Crushing injury of right middle finger, initial encounter (principal); E03.9 Hypothyroidism, unspecified; I10 Essential (primary) hypertension; V48.4XXA Person boarding or alighting a car injured in noncollision transport accident, initial encounter
CPT/HCPCS: 73130; 99283

== ENCOUNTER 2025-01-01 11:49 | Emergency (ER) | payer OTHER, SELFPAY ==
--- NOTE | ~2025-01-01 | XR_ITS ---
EXAMINATION: XR chest 2V DATE: 01/01/2025 13:42 INDICATION: Chest pain after plasma donation. TECHNIQUE: Frontal and lateral views of the chest were obtained. COMPARISON: Chest x-ray dated 10/17/2022 FINDINGS: The heart size is normal. Lungs are clear of acute processes. [place] and mediastinum are normal. IMPRESSION: 1. No acute cardiopulmonary findings. Reviewed, dictated and finalized at location T. RVISOR TOWER
--- NOTE | 2025-01-01 12:33 | ECG_ITS ---
Test Date: 2025-01-01 12:39:26 Measurements Intervals [place] Rate: 60 P: 52 FL: 147 QRS: 91 QRSD: 78 T: 69 QT: 412 QTc: 412 Interpretive Statements SINUS RHYTHM BORDERLINE RIGHT AXIS DEVIATION [QRS AXIS > 90] Compared to ECG 12/03/2023 13:52:41 Sinus bradycardia no longer present Electronically Signed On 01-01-2025 12:48:50 ASSOCIATE PROFESSOR OF [employer]IOSTATISTICS by Girish Farr M.D.
[2025-01-01 12:34] VITALS: BP 124/67; PULSE 64; RESP 16; TEMP 36.7; O2SAT 100
[2025-01-01 12:52] LABS: Hematocrit 41.0 % (37.0-47.0); Hemoglobin 13.8 g/dL (12.0-15.0); Immature Granulocyte Percent A 0.4 % (0-0.5); Lymphocytes Absolute Auto 2.04 K/mm3 (0.9-3.2); Mean Corpuscular HGB Conc 33.7 g/dl (32-36); Mean Corpuscular Hemoglobin 29.8 pg (26-34); Mean Corpuscular Volume 88.6 fl (80-100); Nucleated Red Blood Cells Absolute Auto 0.000 K/mm3 (0.0-0.012); Nucleated Red Blood Cells Perc 0.0 % (0.0-0.2); Platelet Count Result 222 k/mm3 (150-375); Red Blood Count 4.63 M/mm3 (4.2-5.4); White Blood Count 5.4 K/mm3 (4.5-10.0)
[2025-01-01 13:07] LABS: INR 1.1; Prothrombin Time 13.9 Seconds (11.1-14.7)
[2025-01-01 13:17] LABS: Alanine Aminotransferase 13 U/L (6-35); Albumin Level 3.7 g/dL (3.5-5.1); Alkaline Phosphatase 34 U/L (38-126); Anion Gap 3 mmol/L (4-12); Aspartate Amino Transferase 24 U/L (14-36); Bilirubin,Total 0.5 mg/dL (0.2-1.3); Blood Urea Nitrogen 7 mg/dL (7-17); Calcium 8.8 mg/dL (8.4-10.2); Carbon Dioxide 28 mmol/L (22-30); Chloride 108 mmol/L (98-107); Estimated CRCL calculation 68 ml/min; Estimated Glomerular Filt Rate > 60; Glucose 75 mg/dL (65-110); Lipase 79 U/L (23-300); Potassium 4.3 mmol/L (3.4-5.0); Sodium 139 mmol/L (137-145); Total Protein 6.1 g/dL (6.3-8.2)
[2025-01-01 13:28] LABS: Troponin I < 0.012 ng/mL (0.000-0.034)
[2025-01-01 13:32] LABS: Partial Thromboplastin Time 39.2 Seconds (22.3-36.8)
[2025-01-01 14:49] VITALS: BP 119/77; PULSE 61; RESP 20; O2SAT 100
== END 2025-01-01 14:00 | disposition left against medical advice (07) ==
LOC: ANHED 15:10
PROVIDERS: Emergency Provider Emergency Medicine; PCP Nurse Practitioner Family
DX: R51.9 Headache, unspecified (principal)
CPT/HCPCS: 36415; 71046; 80053; 83690; 84484; 85025; 85610; 85730; 93005; 99199